=== PATIENT | female | born 1965 | race Caucasian/White ===

== ENCOUNTER → 2016-02-28 | Outpatient (CLI) | payer BC ==
[~2016-02-28] MED LIST: BUSP5TAB59 PO; FEXO1TAB49 PO; OMEP40CA41 PO
== END | disposition home or self-care (01) ==
LOC: C.PAPS 14:44
PROVIDERS: ATTEND Obstetrics & Gynecology
DX: Z01.419 Encounter for gynecological examination (general) (routine) without abnormal findings (principal); N92.0 Excessive and frequent menstruation with regular cycle

== ENCOUNTER → 2016-02-28 | Outpatient (CLI) | payer BC | END | disposition home or self-care (01) | LOC: C.PATHSPEC 13:43 | PROVIDERS: ATTEND Obstetrics & Gynecology | DX: N92.0 Excessive and frequent menstruation with regular cycle (principal) ==

== ENCOUNTER → 2016-02-28 | Outpatient (CLI) | payer BC ==
[2016-02-28 15:02] LABS: URINE APPEARANCE CLEAR (CLEAR); URINE BILIRUBIN NEG (NEG); URINE COLOR ORANGE; URINE EPITHELIAL CELL AUTO >30 /lpf (0-5); URINE NITRITE NEG (NEG); UROBILINOGEN NEG (NEG)
[2016-02-28 15:09] LABS: MANUAL MICROSCOPIC REQUIRED? NO; REVIEW REQ? NO
== END | disposition home or self-care (01) ==
LOC: C.LABSPEC 13:52
PROVIDERS: ATTEND Obstetrics & Gynecology
DX: N30.00 Acute cystitis without hematuria (principal)

== ENCOUNTER → 2016-04-17 | Outpatient (CLI) | payer BC ==
[2016-04-17 16:42] LABS: BASO % 0.2 %; BASO ABS # 0.02 K/uL (0-0.2); COMPLETE YES; EOS % 2.7 %; HEMATOCRIT 37.9 % (37-47); IG% 0.2 %; LYMPH % 29.9 %; LYMPH ABS # 2.51 K/uL (1.2-3.4); MEAN CELL VOLUME 82.4 fL (80-100); MEAN CORPUSCULAR HEMOGLOBIN 28.7 pg (25-34); MEAN CORPUSCULAR HGB CONC 34.8 g/dl (32-36); MEAN PLATELET VOLUME 9.5 fL (7.4-10.4); MONO % 6.1 %; NEUT % 60.9 %; PLATELET COUNT 326 K/uL (130-400)
== END | disposition home or self-care (01) ==
LOC: C.LAB1850 15:41
PROVIDERS: ATTEND Obstetrics & Gynecology
DX: N92.0 Excessive and frequent menstruation with regular cycle (principal)

== ENCOUNTER → 2016-05-03 | Day surgery (SDC) | payer BC ==
[2016-04-20 15:17] VITALS: Ht 177.8 cm; Wt 108.6 kg
--- NOTE | 2016-04-28 01:22 | HISTORY & PHYSICAL EXAMINATION ---
DATE OF ADMISSION: 05/03/2016 ADMITTING DIAGNOSES: 1. Dysfunctional uterine bleeding. 2. Probable endometrial polyp. ADMISSION HISTORY: The patient is a 51-year-old 2, para 2, who is admitted for diagnostic hysteroscopy, D\T\C for dysfunctional uterine bleeding from probable endometrial polyp. The patient was seen in the office in February of this year for evaluation of dysfunctional uterine bleeding. She was complaining of bleeding every 2 weeks. She had an endometrial biopsy that was negative and a pelvic ultrasound was performed, which suggested an endometrial polyp. She underwent an office FIS, which showed multiple endometrial polyps. Treatment options were discussed and the patient has been admitted for the above listed procedure. PAST MEDICAL HISTORY: OBSTETRICAL: x2. GYNECOLOGICAL: As above. MEDICAL: Bipolar disorder, dysmetabolic syndrome, hypercholesterolemia, hyperglycemia. SURGICAL: Cholecystectomy, colonoscopy, and lipectomy. SOCIAL HISTORY: Former smoker. FAMILY HISTORY: Noncontributory. REVIEW OF SYSTEMS: As per HPI. ADMISSION PHYSICAL EXAMINATION: GENERAL: Today shows a pleasant female in no acute distress. VITAL SIGNS: Blood pressure 108/78, height of 5 feet 10 inches, and weight of 245 pounds. HEENT EXAMINATION: Unremarkable. NECK: Supple. LUNGS: Clear. HEART: With a regular rhythm and rate. ABDOMEN: Soft and nontender. PELVIC: Shows normal external genitalia. Vaginal wall pink and rugated. Cervical os multiparous and closed. Bimanual examination shows an anterior mobile uterus. The adnexa show no palpable masses. RECTAL: Confirmatory. EXTREMITIES: No deep calf tenderness. NEUROLOGIC: Grossly intact. IMPRESSION: A 51-year-old G2, P2 for diagnostic hysteroscopy, D\T\C for dysfunctional uterine bleeding from endometrial polyps. PLAN: Risks, benefits and alternatives to the surgery have been discussed. While the benefits will be removal of any endometrial pathology, the risks are bleeding, infection, inadvertent perforation of the uterus and failure to diagnose and/or treat the problem. The patient understands this. Permit has been signed and she wishes to proceed.
[~2016-05-03] VITALS: Ht 177.8 cm; Wt 108.6 kg
[~2016-05-03] MED LIST changes: +ATROPINE SULFATE 0.1 MG/ML 5ML SYR IV PRN; -BUSP5TAB59 PO; +DEXAMETHASONE SOD INJ 4 MG/ML VIAL IV PRN; +DEXAMETHASONE SOD INJ 4 MG/ML VIAL ONE; +EpHEDrine SULFATE INJ 50 MG/ML AMP IV PRN; +FENTANYL CITRATE INJ 50 MCG/1 ML 2 ML VIAL IV PRN; +FENTANYL CITRATE INJ 50 MCG/1 ML 2 ML VIAL ONE; +IBUPROFEN 200 MG TAB ONE; +IBUPROFEN 600 MG TAB PO PRN; +KETOROLAC TROMETHAMINE 30 MG/ML VIAL IV. PRN; +KETOROLAC TROMETHAMINE 30 MG/ML VIAL ONE; +LABETALOL HCL IV 5 MG/ML 20ML IV PRN; +LACTATED RINGER'S 1000ML 1,000 ML IV SCH; +LIDOCAINE HCL 2% 2 ML VIAL (20MG/ML) ONE; +METOCLOPRAMIDE HCL INJ 5 MG/ML 2 ML VIAL IV PRN; +MIDAZOLAM HCL 1 MG/ML 2ML VIAL ONE; +MoRPHine SULFATE 10 MG/ML CARP/VIAL IV PRN; -OMEP40CA41 PO; +ONDANSETRON INJ 2 MG/ML 2 ML VIAL IV PRN; +ONDANSETRON INJ 2 MG/ML 2 ML VIAL ONE; +PHENYLEPHRINE 100MCG/ML 5ML SYR IV PRN; +PROPOFOL IV EMULSION 10 MG/ML 20 ML VIAL IV ONE; +SODIUM CHLORIDE 0.9% 1000ML 1,000 ML IV SCH
--- NOTE | 2016-05-03 09:45 | History & Physical Bridge - SC ---
H&P Re-Evaluation Bridge Note: I have examined the patient, reviewed the History & Physical and in the interval since the performance of the History & Physical I have noted the following changes of clinical significance: No changes noted
--- NOTE | 2016-05-03 10:37 | [facility] Post Operative Brief Note ---
Immediate Operative Summary Operative Date May 03, 2016. Pre-Operative Diagnosis 1)Dysfuntional Uterine Bleeding, 2)Endometrial Polyp Post-Operative Diagnosis same Procedure(s) Performed 1) Dx Hysteroscopy 2) MyoSure resection of endometrial lining Surgeon Dr. Lilo Monson Volunteer Assistant Surgeon(s) 0 Estimated Blood Loss 50 Findings Multiple endometrial polyps, resection with MyoSure, post procedure hysteroscopy showed a denuded endometrium, fluid deficit 150 cc Fluids (cc crystalloids) 700 Specimens A. Endometrial Curettings Drains None Anesthesia General Complication(s) None Disposition Recovery Room / PACU
--- NOTE | 2016-05-03 10:38 | Medical Student: [facility] ---
Immediate Operative Summary Operative Date May 03, 2016. Pre-Operative Diagnosis Dysfunctional Uterine Bleeding; Endometrial Polyp Post-Operative Diagnosis same Procedure(s) Performed 1. Diagnostic Hysteroscopy 2. Mysoure Resection of Endometrium Surgeon Dr. Pola Monson Family Resource Management Professor Surgeon(s) none Estimated Blood Loss 50cc Findings Uterus sounded to 8cm Both Tubal Ostia visualized by hysteroscopy Multiple polyps in uterine cavity on hysteroscopy Post-Myosure resection, no polyps visualized 150 mL deficit Fluids (cc crystalloids) 500cc Lactated Ringers Specimens Mysoure specimen Drains none Anesthesia General with Laygneal mask airway Complication(s) None Disposition Recovery Room / PACU
--- NOTE | 2016-05-03 10:38 | Discharge Instructions-SurgCtr ---
Discharge Instructions Date of Service May 03, 2016. Visit Reason for Visit: Menorrhagia, Abnormal Pelvic U.s. Discharge Discharge Diagnosis / Problem: same Discharge Goals Goal(s): Therapeutic intervention Activity Recommendations Activity Limitations: as noted below Anesthesia . Post Anesthesia Instructions: If you have had General Anesthesia or IV Sedation: * Do not drive today. * Resume driving when surgeon permits. * Do not make important decisions or sign legal documents today. * Call surgeon for: 1. Temperature elevations greater than 101 degrees F. 2. Uncontrollable pain. 3. Excessive bleeding. 4. Persistent nausea and vomiting. 5. Medication intolerance (nausea, vomiting or rash). * For nausea and vomiting use only clear liquids such as: tea, soda, bouillon until nausea subsides, then gradually increase diet as tolerated. * If you have any concerns or questions, call your surgeon's office. If physician is unavailable and it is an emergency, call 911 or go to the nearest emergency room. . Instructions / Follow-Up Instructions / Follow-Up ACTIVITY RECOMMENDATIONS: * Avoid tampons, douching, hot tubs, pools, and intercourse until bleeding has stopped. * May shower as usual. * No strenuous activity for 24-48 hours. After 24-48 hours, you may do anything you feel like doing (driving and sports are okay). SPECIAL CARE INSTRUCTIONS: Special Diet: * Mild nausea may occur in the immediate post-operative period. * Take clear liquids such as tea, cola or bouillon until all nausea has subsided; you may then resume your normal diet. Special Care: * Light bleeding and vaginal spotting can last from a few days to 3-4 weeks. Call your doctor if bleeding becomes heavier than the heaviest part of your period. * Check your temperature twice a day for one week. If it goes above 100.4 degrees Fahrenheit (38.0 Celsius), notify your doctor. * Call your doctor's office for an appointment for 6 weeks after your surgery. FOLLOW-UP VISIT: Call your doctor's office for an appointment for 6 weeks after your surgery. Diet Recommendations Home Diet: resume previous diet Procedures Procedures Performed: 1) Dx Hysteroscopy 2) MyoSure resection of endometrial lining Pending Studies Studies pending at discharge: yes List of pending studies: Pathology rom procedure Medical Emergencies . Who to Call and When: Medical Emergencies: If at any time you feel your situation is an emergency, please call 911 immediately. . Non-Emergent Contact Non-Emergency issues call your: Mycologist Call Non-Emergent contact if: temperature is above 100.5 . . "Provider Documentation" section prepared by Pola Monson.
--- NOTE | 2016-05-03 10:43 | OPERATIVE REPORT ---
DATE OF OPERATION: 05/03/2016 PREOPERATIVE DIAGNOSES: 1. Dysfunctional uterine bleeding. 2. Probable endometrial polyp. POSTOPERATIVE DIAGNOSIS: Same. PROCEDURE PERFORMED: 1. Diagnostic hysteroscopy. 2. MyoSure resection of endometrial lining. SURGEON: Dr. Monson. ANESTHESIA: General. FINDINGS: Hysteroscopic examination of the endometrium showed multiple endometrial polyps. MyoSure resection of the endometrial lining performed. Repeat hysteroscopic examination showed a denuded endometrial lining. Fluid deficit for the procedure 150 mL. PROCEDURE IN DETAIL: The patient was taken to the operating room and under general anesthesia, was placed in dorsolithotomy position and draped and prepped in the usual fashion. Bladder was drained of any residual urine. Single tooth tenaculum was used to grasp the anterior lip of the cervix. The cervical os was dilated with Falk dilators to a Falk #23. The MyoSure hysteroscope was inserted into the endometrial cavity with description as above. The MyoSure resection scope was inserted and a curettage of the endometrial lining with the MyoSure was performed to remove the multiple polyps. Post-procedure resection showed a denuded endometrium with no active bleeding. Fluid deficit for the procedure 150 mL. The patient taken out of dorsal lithotomy and to recovery room in satisfactory condition. I attest to the content of the Intraoperative Record and any orders documented therein. Any exceptio ns are noted below.
[2016-05-03 11:14] VITALS: TEMP 36.5
[2016-05-03 11:37] VITALS: BP 132/85; PULSE 60; O2SAT 100
--- NOTE | 2016-05-03 11:47 | Anesthesia Progress Nt - [facility] ---
Anesthesia Post Op Note Date & Time May 03, 2016 at 11:46 Vital Signs Pain Intensity: 2 Vital Signs Past 12 Hours Date Time Temp Pulse Resp B/P Pulse Ox O2 Delivery O2 Flow Rate FiO2 05/03/16 11:37 60 16 132/85 100 Room Air 05/03/16 11:14 36.5 61 16 141/84 100 Room Air 05/03/16 11:10 122/70 05/03/16 11:08 64 19 96 05/03/16 11:08 63 19 05/03/16 11:06 36.4 60 16 122/75 95 Room Air 05/03/16 11:05 122/75 05/03/16 11:03 65 16 05/03/16 11:03 64 16 97 05/03/16 11:02 65 11 05/03/16 11:02 66 11 96 05/03/16 11:00 138/77 05/03/16 10:57 61 16 05/03/16 10:57 61 16 100 05/03/16 10:55 130/75 05/03/16 10:52 62 14 05/03/16 10:52 62 14 100 05/03/16 10:51 64 20 100 05/03/16 10:51 63 20 05/03/16 10:50 136/82 05/03/16 10:48 36.2 81 16 137/85 98 Mask 8 05/03/16 10:46 70 19 05/03/16 10:46 69 19 99 05/03/16 10:45 133/68 05/03/16 10:41 79 18 99 05/03/16 10:41 77 18 05/03/16 08:10 36.7 71 16 113/67 95 Room Air Notes Mental Status: alert / awake / arousable, participated in evaluation Pt Amnestic to Procedure: Yes Nausea / Vomiting: adequately controlled Pain: adequately controlled Airway Patency, RR, SpO2: stable & adequate BP & HR: stable & adequate Hydration State: stable & adequate Anesthetic Complications: no major complications apparent
== END | disposition home or self-care (01) ==
LOC: X.SURG 07:38
PROVIDERS: ATTEND Obstetrics & Gynecology
DX: N84.0 Polyp of corpus uteri (principal); N92.0 Excessive and frequent menstruation with regular cycle; E78.00 Pure hypercholesterolemia, unspecified; N30.00 Acute cystitis without hematuria; M19.90 Unspecified osteoarthritis, unspecified site; F31.9 Bipolar disorder, unspecified; N71.9 Inflammatory disease of uterus, unspecified; Z83.3 Family history of diabetes mellitus; Z87.891 Personal history of nicotine dependence; Z82.49 Family history of ischemic heart disease and other diseases of the circulatory system; Z80.9 Family history of malignant neoplasm, unspecified

== ENCOUNTER → 2016-08-22 | Outpatient (CLI) | payer BC ==
[~2016-08-22] MED LIST changes: -ATROPINE SULFATE 0.1 MG/ML 5ML SYR IV PRN; -DEXAMETHASONE SOD INJ 4 MG/ML VIAL IV PRN; -DEXAMETHASONE SOD INJ 4 MG/ML VIAL ONE; -EpHEDrine SULFATE INJ 50 MG/ML AMP IV PRN; -FENTANYL CITRATE INJ 50 MCG/1 ML 2 ML VIAL IV PRN; -FENTANYL CITRATE INJ 50 MCG/1 ML 2 ML VIAL ONE; -IBUPROFEN 200 MG TAB ONE; -IBUPROFEN 600 MG TAB PO PRN; -KETOROLAC TROMETHAMINE 30 MG/ML VIAL IV. PRN; -KETOROLAC TROMETHAMINE 30 MG/ML VIAL ONE; -LABETALOL HCL IV 5 MG/ML 20ML IV PRN; -LACTATED RINGER'S 1000ML 1,000 ML IV SCH; -LIDOCAINE HCL 2% 2 ML VIAL (20MG/ML) ONE; -METOCLOPRAMIDE HCL INJ 5 MG/ML 2 ML VIAL IV PRN; -MIDAZOLAM HCL 1 MG/ML 2ML VIAL ONE; -MoRPHine SULFATE 10 MG/ML CARP/VIAL IV PRN; -ONDANSETRON INJ 2 MG/ML 2 ML VIAL IV PRN; -ONDANSETRON INJ 2 MG/ML 2 ML VIAL ONE; -PHENYLEPHRINE 100MCG/ML 5ML SYR IV PRN; -PROPOFOL IV EMULSION 10 MG/ML 20 ML VIAL IV ONE; -SODIUM CHLORIDE 0.9% 1000ML 1,000 ML IV SCH
[2016-08-22 17:29] LABS: MEAN CELL VOLUME 84.7 fL (80-100); MEAN CORPUSCULAR HEMOGLOBIN 27.7 pg (25-34); MEAN CORPUSCULAR HGB CONC 32.7 g/dl (32-36); MEAN PLATELET VOLUME 9.9 fL (7.4-10.4); PLATELET COUNT 367 K/uL (130-400); RED BLOOD COUNT 4.37 M/uL (4.2-5.4); WHITE BLOOD COUNT 9.08 K/uL (4.8-10.8)
== END | disposition home or self-care (01) ==
LOC: C.LAB1850 16:02
PROVIDERS: ATTEND Obstetrics & Gynecology
DX: N92.0 Excessive and frequent menstruation with regular cycle (principal)

== ENCOUNTER → 2016-08-24 | Outpatient (CLI) | payer BC ==
--- NOTE | 2016-08-24 12:44 | MAMMOGRAPHY REPORT ---
BILATERAL DIGITAL SCREENING MAMMOGRAM TOMOSYNTHESIS WITH CAD: 08/24/2016 CLINICAL HISTORY: Routine screening. TECHNIQUE: Breast tomosynthesis in addition to standard 2D mammography was performed. Current study was also evaluated with a Computer Aided Detection (CAD) system. COMPARISON: Comparison is made to exams dated: 08/24/2015 mammogram, 07/27/2014 mammogram, 06/16/2013 ma mmogram, 05/23/2012 mammogram, 05/15/2011 mammogram, and 05/03/2010 mammogram - [facility]. BREAST COMPOSITION: There are scattered areas of fibroglandular density in both breasts. FINDINGS: No suspicious masses, calcifications, or areas of architectural distortion are noted in ei ther breast. There has been no significant interval change compared to prior exams. Scattered bilate ral benign-appearing calcifications are not significantly changed. Nodular focal asymmetry in the le ft upper outer quadrant is stable dating back to at least the 2009 exam. IMPRESSION: ACR BI-RADS CATEGORY 2: BENIGN There is no mammographic evidence of malignancy. A 1 year screening mammogram is recommended. The pa tient will receive written notification of the results. Approximately 10% of breast cancers are not detected with mammography. A negative mammographic report should not delay biopsy if a clinically suggestive mass is present. Candi Yanez M.D. /:08/24/2016 09:22:35 Charge Weigher: Elijah KAUR(R)(M), [facility] letter sent: Normal 1/2 BI-RADS Code: ACR BI-RADS Category 2: Benign
== END | disposition home or self-care (01) ==
LOC: C.MAMM 08:57
PROVIDERS: ATTEND Nurse Practitioner Family
DX: Z12.31 Encounter for screening mammogram for malignant neoplasm of breast (principal)

== ENCOUNTER 2017-01-24 10:07 | Emergency (ER) | payer BC ==
[~2017-01-24] VITALS: Ht 177.8 cm; Wt 113.3 kg
[2017-01-24 10:11] VITALS: TEMP 36.5; Ht 177.8 cm; Wt 113.3 kg
[2017-01-24] MEDS ORDERED: ALUMINUM/MAGNESIUM SUSP 30 ML UDC PO STA (10:36)
[2017-01-24] MEDS ORDERED: MoRPHine SULFATE 4 MG/ML 1 ML CARP\\VIAL IV STA (10:36)
[2017-01-24] MEDS ORDERED: LIDOCAINE HCL 2% VISC SOLN 20 ML UDC PO STA (10:36)
--- NOTE | 2017-01-24 11:05 | DIAGNOSTIC IMAGING REPORT ---
CHEST ONE VIEW PORTABLE CLINICAL HISTORY: Evaluate Fever/Sepsis fever. Dyspnea. COMPARISON STUDY: 10/20/2015 FINDINGS: The bones soft tissues and hemidiaphragms are normal. The cardiomediastinal silhouette is normal. The lungs are clear. The pulmonary vasculature is normal. IMPRESSION: Negative chest. The above report was generated using voice recognition software. It may contain grammatical, syntax or spelling errors. Electronically signed by: Klever Gutierrez M.D. 01/24/2017 11:04 AM Dictated Date/Time: 01/24/2017 11:03 AM
[2017-01-24 11:40] LABS: BASO % 0.2 %; BASO ABS # 0.02 K/uL (0-0.2); COMPLETE YES; EOS % 1.4 %; HEMATOCRIT 40.4 % (37-47); IG% 0.2 %; LYMPH % 27.6 %; LYMPH ABS # 2.29 K/uL (1.2-3.4); MEAN CELL VOLUME 85.1 fL (80-100); MEAN CORPUSCULAR HEMOGLOBIN 29.3 pg (25-34); MEAN CORPUSCULAR HGB CONC 34.4 g/dl (32-36); MEAN PLATELET VOLUME 9.6 fL (7.4-10.4); MONO % 6.3 %; NEUT % 64.3 %; PLATELET COUNT 342 K/uL (130-400); RED BLOOD COUNT 4.75 M/uL (4.2-5.4); WHITE BLOOD COUNT 8.29 K/uL (4.8-10.8)
[2017-01-24 11:57] LABS: BLOOD UREA NITROGEN 11 mg/dl (7-18); BUN/CREATININE RATIO 18.4 (10-20); CALCIUM 8.7 mg/dl (8.5-10.1); CARBON DIOXIDE 30 mmol/L (21-32); CHLORIDE 105 mmol/L (98-107); CREATININE 0.62 mg/dl (0.60-1.20); GLUCOSE 98 mg/dl (70-99); POTASSIUM 3.6 mmol/L (3.5-5.1); SODIUM 137 mmol/L (136-145)
[2017-01-24] MEDS ORDERED: IBUP-1459 PO (12:23)
[2017-01-24 13:17] LABS: URINE APPEARANCE CLEAR (CLEAR); URINE BILIRUBIN NEG (NEG); URINE COLOR YELLOW; URINE EPITHELIAL CELL AUTO 20-30 /lpf (0-5); URINE NITRITE NEG (NEG); URINE PH 7.5 (4.5-7.5); URINE SPECIFIC GRAVITY 1.019 (1.000-1.030); UROBILINOGEN NEG (NEG); ZZUR CULT IF INDIC CLEAN CATCH NO
[2017-01-24 13:23] LABS: MANUAL MICROSCOPIC REQUIRED? NO; REVIEW REQ? NO
[2017-01-24] MEDS ORDERED: PROCHLORPERAZINE 5 MG/ML 2 ML VIAL IV STA (14:39)
--- NOTE | 2017-01-24 14:42 | EMERGENCY ROOM VISIT NOTE ---
History Report prepared by Martinibcecilia: Sharif Irizarry Under the Supervision of: Dr. Jair King D.O. First contact with patient: 10:31 Chief Complaint: CHEST PAIN Stated Complaint: CHEST PAINS History of Present Illness The patient is a 51 year old female who presents to the Emergency Room with complaints of constant central chest pain beginning yesterday. She describes her pain as a "burning" pain. She states that her pain began yesterday after eating a hash-brown. The patient states that she felt like her food got stuck in her throat yesterday, and she had to vomit it up. Her pain began following vomiting. She has a history of similar symptoms. The patient had an EGD and colonoscopy earlier this year for similar symptoms which were both normal. She also complains of low back pain, but states that this is chronic. She called her PCP this morning regarding her chest pain and was referred to the ED. The patient has only had orange juice squeezed from an orange since her vomiting episode yesterday. She has no history of blood clots. She notes that she has been having problems with urinary incontinence for the past three months. The patient also notes that she takes two Ibuprofen every night to sleep. Source of History: patient Onset: Yesterday Position: chest (central) Quality: burning Timing: constant Associated Symptoms: + vomiting (one episode), + back pain (low, chronic) Review of Systems See HPI for pertinent positives & negatives. A total of 10 systems reviewed and were otherwise negative. Past Medical & Surgical Medical Problems: (1) Bipolar 1 disorder (2) Bronchitis (3) Bronchitis (4) Bronchitis (5) Chest wall pain (6) DUB (dysfunctional uterine bleeding) (7) Dysmetabolic syndrome X (8) Endometrial polyp (9) Pneumonia Surgical Problems: (1) Cholecystectomy Family History Patient reports no known family medical history. Social History Smoking Status: Former Smoker Alcohol Use: none Drug Use: none Marital Status: Housing Status: lives with family Occupation Status: unemployed Current/Historical Medications Scheduled PRN Ibuprofen (Motrin), 400 MG PO HS PRN for Pain Allergies Coded Allergies: Penicillins (Verified Allergy, Unknown, PT UNSURE IF ACTUALLY ALLERGIC TO IT OR NOT, 01/24/17) Physical Exam Vital Signs Date Time Temp Pulse Resp B/P (MAP) Pulse Ox O2 Delivery O2 Flow Rate FiO2 01/24/17 12:32 130/57 01/24/17 12:07 70 12 97 01/24/17 12:01 149/87 01/24/17 11:37 66 24 96 01/24/17 11:31 131/58 01/24/17 11:23 72 20 141/86 97 01/24/17 11:19 141/86 01/24/17 10:11 36.5 75 18 144/91 96 Room Air Physical Exam CONSTITUTIONAL/VITAL SIGNS: Reviewed / noted above. GENERAL: Non-toxic in appearance. INTEGUMENTARY: Warm, dry, and [place]. HEAD: Normocephalic. EYES: without scleral icterus or trauma. ENT/OROPHARYNX: clear and moist. LYMPHADENOPATHY/NECK: Is supple without lymphadenopathy or meningismus. RESPIRATORY: Lungs clear and equal. CARDIOVASCULAR: Regular rate and rhythm. GI/ABDOMEN: Soft and nontender. No organomegaly or pulsatile mass. No rebound or guarding. Normal bowel sounds. EXTREMITIES: Warm and well perfused. BACK: No CVA tenderness. NEUROLOGICAL: Intact without focal deficits. PSYCHIATRIC: normal affect. MUSCULOSKELETAL: Normally developed with good muscle tone. Medical Decision & Procedures ER Provider Diagnostic Interpretation: Radiology results as stated below per my review and radiologist interpretation: CHEST ONE VIEW PORTABLE FINDINGS: The bones soft tissues and hemidiaphragms are normal. The cardiomediastinal silhouette is normal. The lungs are clear. The pulmonary vasculature is normal. IMPRESSION: Negative chest. The above report was generated using voice recognition software. It may contain grammatical, syntax or spelling errors. Electronically signed by: Klever Gutierrez M.D. 01/24/2017 11:04 AM Laboratory Results 01/24/17 11:30 Red Blood Count 4.75, Mean Corpuscular Volume 85.1, Mean Corpuscular Hemoglobin 29.3, Mean Corpuscular Hemoglobin Concent 34.4, Mean Platelet Volume 9.6, Neutrophils (%) (Auto) 64.3, Lymphocytes (%) (Auto) 27.6, Monocytes (%) (Auto) 6.3, Eosinophils (%) (Auto) 1.4, Basophils (%) (Auto) 0.2, Neutrophils # (Auto) 5.32, Lymphocytes # (Auto) 2.29, Monocytes # (Auto) 0.52, Eosinophils # (Auto) 0.12, Basophils # (Auto) 0.02 01/24/17 11:30 Test 01/24/17 11:30 01/24/17 13:08 White Blood Count 8.29 K/uL (4.8-10.8) Red Blood Count 4.75 M/uL (4.2-5.4) Hemoglobin 13.9 g/dL (12.0-16.0) Hematocrit 40.4 % (37-47) Mean Corpuscular Volume 85.1 fL (80-100) Mean Corpuscular Hemoglobin 29.3 pg (25-34) Mean Corpuscular Hemoglobin Concent 34.4 g/dl (32-36) Platelet Count 342 K/uL (130-400) Mean Platelet Volume 9.6 fL (7.4-10.4) Neutrophils (%) (Auto) 64.3 % Lymphocytes (%) (Auto) 27.6 % Monocytes (%) (Auto) 6.3 % Eosinophils (%) (Auto) 1.4 % Basophils (%) (Auto) 0.2 % Neutrophils # (Auto) 5.32 K/uL (1.4-6.5) Lymphocytes # (Auto) 2.29 K/uL (1.2-3.4) Monocytes # (Auto) 0.52 K/uL (0.11-0.59) Eosinophils # (Auto) 0.12 K/uL (0-0.5) Basophils # (Auto) 0.02 K/uL (0-0.2) RDW Standard Deviation 42.3 fL (36.4-46.3) RDW Coefficient of Variation 13.8 % (11.5-14.5) Immature Granulocyte % (Auto) 0.2 % Immature Granulocyte # (Auto) 0.02 K/uL (0.00-0.02) Anion Gap 2.0 mmol/L (3-11) Est Creatinine Clear Calc Drug Dose 148.1 ml/min Estimated GFR () 121.9 Estimated GFR (Non- 105.1 BUN/Creatinine Ratio 18.4 (10-20) Calcium Level 8.7 mg/dl (8.5-10.1) Troponin I < 0.015 ng/ml (0-0.045) Lipase 172 U/L (73-393) Urine Color YELLOW Urine Appearance CLEAR (CLEAR) Urine pH 7.5 (4.5-7.5) Urine Specific [place] 1.019 (1.000-1.030) Urine Protein NEG (NEG) Urine Glucose (UA) NEG (NEG) Urine Ketones NEG (NEG) Urine Occult Blood 3+ (NEG) Urine Nitrite NEG (NEG) Urine Bilirubin NEG (NEG) Urine Urobilinogen NEG (NEG) Urine Leukocyte Esterase NEG (NEG) Urine WBC (Auto) 1-5 /hpf (0-5) Urine RBC (Auto) >30 /hpf (0-4) Urine Hyaline Casts (Auto) 0 /lpf (0-5) Urine Epithelial Cells (Auto) 20-30 /lpf (0-5) Urine Bacteria (Auto) NEG (NEG) Laboratory results as stated above per my review. Medications Administered Medications (Trade) Dose Ordered Sig/Zach Route Start Time Stop Time Status Last Admin Dose Admin Morphine Sulfate (MoRPHine SULFATE INJ) 4 mg NOW STAT IV 01/24/17 10:36 01/24/17 10:38 DC 01/24/17 11:25 4 MG Al Hydroxide/Mg Hydroxide (Maalox Susp) 30 ml NOW STAT PO 01/24/17 10:36 01/24/17 10:38 DC 01/24/17 11:25 30 ML Lidocaine HCl (Viscous Lidocaine 2% Soln) 10 ml NOW STAT PO 01/24/17 10:36 01/24/17 10:39 DC 01/24/17 11:26 10 ML ECG Indication: chest pain Rate (beats per minute): 67 Rhythm: normal sinus Findings: no acute ischemic change, no ectopy ED Course 1031: Previous medical records were reviewed. The patient was evaluated in room A3. A complete history and physical examination was performed. 1036: Ordered Viscous Lidocaine 2% Soln 10 mL PO, Maalox Susp 30 mL PO, Morphine Sulfate 4 mg IV. 1439: Ordered Compazine Inj 10 mg IV. 1445: On reevaluation, the patient is resting comfortably. I discussed the results and findings with the patient. She verbalized agreement of the treatment plan. The patient was discharged home. Medical Decision the differential was considered includes acute myocardial infarction, acute coronary syndrome, myocarditis, pericarditis, pericardial effusion/tamponade, esophageal perforation, thoracic aortic dissection, pulmonary embolism, pneumonia, pneumothorax, pancreatitis, shingles, acute cholecystitis, perforated abdominal viscus. This is a 51-year-old female who presents to the ED with a chief complaint of chest discomfort. The patient states that is mostly a burning discomfort in the chest. She states that she ate some food yesterday and felt like it got stuck. She states that she has had similar symptoms in the past. She has had endoscopy less than 12 months ago and nothing was found wrong. The patient was able to tolerate fluids here and states that when found appropriately. Her ED evaluation included an EKG that shows a normal sinus rhythm without ectopy or acute injury. Chest x-ray was negative for acute disease. CBC is normal. Troponin was negative, PRP is normal lipase was negative. The patient did report some urinary symptoms and therefore urinalysis was done. This was not related to her recent for coming to the ED today. The urine did not show abnormalities concerning for infection. The patient was told results the test. She was given some IV morphine for pain, IV Compazine for nausea and a GI cocktail. She was told the results of that'll to be stable for discharge and outpatient follow-up. Medication Reconcilliation Current Medication List: was personally reviewed by me Blood Pressure Screening Patient's blood pressure: Elevated blood pressure Blood pressure disposition: Elevated BP felt to be situational Impression Primary Impression: Burning chest pain Scribe Attestation The scribe's documentation has been prepared under my direction and personally reviewed by me in its entirety. I confirm that the note above accurately reflects all work, treatment, procedures, and medical decision making performed by me. Departure Information Dispostion Home / Self-Care Referrals Suly Law, C.R.N.P. (PCP) Patient Instructions My [facility] Additional Instructions Take Pepcid or Zantac for your symptoms. Follow-up with your GI specialist in PCP for reevaluation. Return for worsening or new concerns.
[2017-01-24] MEDS ORDERED: PANT40TA PO (15:20)
[2017-01-24 15:27] VITALS: BP 126/77; PULSE 69; O2SAT 95
== END 2017-01-24 15:30 | disposition home or self-care (01) ==
LOC: C.EDB 10:07 → C.EDA 15:30
DX: R07.9 Chest pain, unspecified (principal); M54.5 Low back pain; G89.29 Other chronic pain; F31.9 Bipolar disorder, unspecified; Z87.01 Personal history of pneumonia (recurrent); Z90.49 Acquired absence of other specified parts of digestive tract; Z87.891 Personal history of nicotine dependence

== ENCOUNTER → 2017-08-30 | Outpatient (CLI) | payer OTHER ==
[~2017-08-30] MED LIST changes: +ANT25 PO; -FEXO1TAB49 PO; +FLUO20CA35 PO; +IBUP-1050 PO; +ONDA4TAB10 SL
--- NOTE | 2017-09-02 07:44 | MAMMOGRAPHY REPORT ---
BILATERAL DIGITAL SCREENING MAMMOGRAM TOMOSYNTHESIS WITH CAD: 08/30/2017 CLINICAL HISTORY: Routine screening. Patient has no complaints. TECHNIQUE: The study was acquired using full field digital technology and interpreted from soft copy. Breast tomosynthesis in addition to standard 2D mammography was performed. Current study was also ev aluated with a Computer Aided Detection (CAD) system. COMPARISON: Comparison is made to exams dated: 08/24/2016 mammogram, 08/24/2015 mammogram, 07/27/2014 m ammogram, 06/16/2013 mammogram, 06/02/2012 mammogram, and 05/23/2012 mammogram - [facility]. BREAST COMPOSITION: There are scattered areas of fibroglandular density in both breasts. FINDINGS: There is an asymmetry within the left anterior breast slightly medial to the nipple on the cc view, w hich may represent normal overlapping fibroglandular tissue although spot compression tomosynthesis v iews and possible breast ultrasound are recommended for further evaluation. The remainder of both breasts are stable compared to prior exams, without suspicious masses, calcific ations, or areas of architectural distortion noted. Scattered bilateral benign-appearing calcificati ons are not significantly changed. IMPRESSION: ACR BI-RADS CATEGORY 0: INCOMPLETE EVALUATION: NEED ADDITIONAL IMAGING EVALUATION Left breast asymmetry, for which additional imaging evaluation is recommended. The patient will be c alled to schedule an appointment. Some breast cancers are not detected with mammography. A negative mammographic report should not addie y biopsy if a clinically suggestive mass is present. Candi Yanez M.D. /:08/30/2017 15:21:27 Leather Tooler: RT Sonido(Beth)(M)(BD), [facility] letter sent: Addl Imaging 0 BI-RADS Code: ACR BI-RADS Category 0: Incomplete Evaluation: Need Additional Imaging Evaluation
== END | disposition home or self-care (01) ==
LOC: C.MAMM 14:47
PROVIDERS: ATTEND Nurse Practitioner Family
DX: Z12.31 Encounter for screening mammogram for malignant neoplasm of breast (principal); R92.8 Other abnormal and inconclusive findings on diagnostic imaging of breast

== ENCOUNTER → 2017-09-12 | Outpatient (CLI) | payer OTHER ==
--- NOTE | 2017-09-12 14:56 | MAMMOGRAPHY REPORT ---
UNILATERAL LEFT DIGITAL DIAGNOSTIC MAMMOGRAM TOMOSYNTHESIS AND TARGETED LEFT ULTRASOUND: 09/12/2017 CLINICAL HISTORY: Callback from screening mammogram for left breast asymmetry. The patient was recent ly diagnosed with thyroid cancer. TECHNIQUE: The study was acquired using full field digital technology and interpreted from soft copy. Breast tomosynthesis in addition to standard 2D mammography was performed. Spot compression left CC and MLO 2D and tomosynthesis images and full field left CC 2D view obtained. COMPARISON: Comparison is made to exams dated: 08/30/2017 mammogram, 08/24/2016 mammogram, 08/24/2015 m ammogram, 07/27/2014 mammogram, 06/16/2013 mammogram, and 05/23/2012 mammogram - [facility] nter. BREAST COMPOSITION: There are scattered areas of fibroglandular density in left breast. FINDINGS: Spot compression views demonstrate an ovoid low-density asymmetry within the left 6:[address] anteriorly, best seen on the MLO tomosynthesis images. Ultrasound was performed of the left breas t in the region of the mammographic asymmetry. In the left 6:00 periareolar breast, there is an oval hypoechoic solid mass with non-circumscribed margins which measures 12 x 6 x 15 mm. This correspond s with the mammographic asymmetry and is indeterminate. Recommend ultrasound-guided core needle biop sy for further evaluation. IMPRESSION: ACR BI-RADS CATEGORY 4: SUSPICIOUS, ULTRASOUND ACR BI-RADS CATEGORY 4: SUSPICIOUS Hypoechoic 15 mm mass in the left 6:00 periareolar breast on ultrasound, which corresponds with a lisa mographic asymmetry. The mass is indeterminate and ultrasound-guided core needle biopsy is recommend ed for further evaluation. A phone call was made to the physician's office to confirm faxed results were received. The patient has been verbally notified of the results. She tentatively scheduled the biopsy before l eaving the department. Some breast cancers are not detected with mammography. A negative mammographic report should not addie y biopsy if a clinically suggestive mass is present. Candi Yanez M.D. /:09/12/2017 14:24:43 Sorter Pricer: Aida Fay RT(R)(M), [facility] letter sent: Abnormal 4/5 OVERALL STUDY BIRADS: 4 Suspicious abnormality
== END | disposition home or self-care (01) ==
LOC: C.MAMM 13:44
PROVIDERS: ATTEND Nurse Practitioner Family
DX: N64.89 Other specified disorders of breast (principal); N63.24 Unspecified lump in the left breast, lower inner quadrant

== ENCOUNTER → 2017-09-20 | Outpatient (CLI) | payer OTHER ==
--- NOTE | 2017-09-20 14:14 | Discharge Instructions ---
Discharge Instructions Procedure Procedure Date: Sep 20, 2017. Reason for visit: Left Mass. Discharge Discharge Date: Sep 20, 2017. Discharge Diagnosis: status post breast biopsy Instructions Activity Recommendations: Additional Limitations (see below) Return to School/Work: no limitations Recommended Home Diet: No Limitations Provider Instructions: ACTIVITY RECOMMENDATIONS: * No lifting, pushing, pulling or exercising the affected side for three days. RETURN TO SCHOOL/WORK: * You may return to work/school after the procedure, but do not perform any strenuous activities for 24 to 48 hours. MEDICATIONS: * Tylenol (two 325 mg) every four to six hours if needed for mild pain (if not allergic to Tylenol). DIET: * Resume previous diet. SPECIAL CARE INSTRUCTIONS: * Keep biopsy site dry for 24 hours. May shower after 24 hours, but do not soak (bathe) incision. * May remove Tegaderm (plastic patch) 24 hours after procedure * Leave the steri-strips on for one week. Allow the steri-strips to fall off by themselves. If not off after one week, you may remove them. You may place a Bandaid crosswise over the strips, if desired. * Apply ice 10 minutes on and 10 minutes off as needed. * Wear a bra at bedtime to sleep more comfortably for 2-3 days. * Your referring physician should have the results after approximately 5 to 7 business days. * Call for unusual bleeding, fever, drainage, etc or if you have any questions call during normal business hours or after hours call Dr Yanez, . FOLLOW UP VISIT: Follow-up with Referring Physician as scheduled. Allergies Coded Allergies: Penicillins (Verified Allergy, Unknown, PT UNSURE IF ACTUALLY ALLERGIC TO IT OR NOT, 08/31/17) Chin Ray Recommendations: Call your doctor if: * Temperature above 101 degrees * Pain not relieved by pain medicine ordered * There is increased drainage or redness from any incision * You have any unanswered questions or concerns. Your Doctors Instructions noted above were prepared by provider Candi Yanez. Patient Signature Section: Patient Instructions Signature Page Rachele Fregoso Patient (or Guardian) Signature/Date: I have read and understand the instructions given to me by my caregivers. Caregiver/RN/Doctor Signature/Date: The above-named patient and/or guardian has received patient instructions on this date. + Original Patient Signature Page (only) stays with chart. Please make copy for patient.
--- NOTE | 2017-09-20 15:27 | MAMMOGRAPHY REPORT ---
UNILATERAL LEFT DIGITAL DIAGNOSTIC MAMMOGRAM TOMOSYNTHESIS: 09/20/2017 CLINICAL HISTORY: Status post left breast biopsy. TECHNIQUE: The study was acquired using full field digital technology and interpreted from soft copy. Breast tomosynthesis in addition to standard 2D mammography was performed. Postprocedural left CC a nd ML tomosynthesis images were obtained. COMPARISON: Comparison is made to exams dated: 09/12/2017 mammogram, 08/30/2017 mammogram, 08/24/2016 ma mmogram, 08/24/2015 mammogram, and 07/27/2014 mammogram - [facility]. BREAST COMPOSITION: There are scattered areas of fibroglandular density in left breast. FINDINGS: A new biopsy marker clip is seen at the site of the biopsied mass in the left 6:00 anterior breast. No significant postbiopsy hematoma is seen. IMPRESSION: POST PROCEDURE IMAGING FOR MARKER PLACEMENT New biopsy marker clip status post left breast biopsy. Pathology results are pending. Some breast cancers are not detected with mammography. A negative mammographic report should not addie y biopsy if a clinically suggestive mass is present. Candi Yanez M.D. /:09/20/2017 14:27:07 Uke Driver: RT Isaac(R)(M), [facility] BI-RADS Code: Post Procedure Imaging For Marker Placement
--- NOTE | 2017-09-20 15:27 | MAMMOGRAPHY REPORT ---
ULTRASOUND GUIDED BIOPSY LEFT BREAST: 09/20/2017 CLINICAL HISTORY: Left 6:00 breast mass. PATIENT CONSENT: The procedure, risks and benefits were discussed with the patient and informed writt en consent was obtained. A timeout was performed immediately prior to the procedure. PROCEDURE DESCRIPTION: With ultrasound guidance, aseptic technique, and lidocaine as the local anesth etic (1% lidocaine to anesthetize the skin and 1% lidocaine with epinephrine to anesthetize the deepe r tissues), the mass of concern in the left 6:00 periareolar breast was sampled 3 times with a 14-gau [employer] biopsy needle. Immediately thereafter, with ultrasound guidance, a metallic localizer cl ip was placed at the biopsy site. Direct pressure was applied to the site immediately post procedure until hemostasis was achieved. Postprocedure unilateral mammograms were performed to confirm clip p lacement. Steri-Strips were placed over the site and covered with an Opsite patch. The patient fidel ated the procedure without complication. She was given wound care instructions. The specimens were s ent to pathology for analysis. COMPARISON: Comparison is made to exams dated: 09/12/2017 ultrasound, 09/12/2017 mammogram, 08/30/2017 ma mmogram, 08/24/2015 mammogram, 07/27/2014 mammogram, and 06/16/2013 mammogram - [facility]. IMPRESSION: ULTRASOUND GUIDED BIOPSY Ultrasound-guided core needle biopsy of the left 6:00 periareolar breast mass, with clip placement. The patient will receive pathology results from her referring provider. Candi Yanez M.D. /:09/20/2017 14:15:30 Documentation Lead: RT Isaac(R)(M), [facility]
== END | disposition home or self-care (01) ==
LOC: C.MAMM 13:38
PROVIDERS: ATTEND Nurse Practitioner Family
DX: N60.92 Unspecified benign mammary dysplasia of left breast (principal)

== ENCOUNTER 2021-04-03 17:37 | Observation (INO) ==
--- NOTE | 2021-04-03 17:48 | Emergency Department Note ---
Impression & Plan Atypical chest pain, Tobacco use ED Provider Note NAME: CLEVE WHEAT AGE: 55 SEX: F : 1965 ARRIVES VIA: Walk-In INFORMANT: Patient, ED PROVIDER(S): Ralf Michaud MD Chief Complaint: Chest pain, diaphoresis HPI: Patient presents due to concern for chest pain and diaphoresis. Patient states that her chest pain was left-sided squeezing in nature with pain to her neck and jaw area. The patient states that this occurred around 448 as she dropped her drain grandchildren off and states that she did take 2 nitros that were her 's. The patient was given nitro and 324 of aspirin in route. Patient states initially her pain was 15 out of 10 and is currently 8 out of 10. No prior known history of heart or lung disease but the patient is a smoker. Patient states that her father had a stroke in his 70s. No known heart attack or stroke in parents or siblings before the age of 65. The patient denies any leg swelling or history of DVT or PE. Patient denies any upper respiratory symptoms fevers or chills. Patient denies any leg swelling or shortness of breath. Patient does not know she was also having associated anxiety. Patient was not ambulatory or exerting herself at the time that this occurred and is unable to state whether or not she had exertional symptoms. ROS: See HPI for pertinent positives and negatives. A total of 10 systems were reviewed and otherwise negative. Past medical history: See below Surgical history: See below Social history: See below Physical Exam: GENERAL: Mild distress, wearing a mask. EYE EXAM: Normal conjunctiva. PERRL, no anisocoria and EOM's grossly intact w/o pain. NECK: Supple, no nuchal rigidity, no adenopathy, non-tender. No signs of meningismus. LUNGS: Clear to auscultation. Normal chest wall mechanics. HEART: NSR, no MRG. ABDOMEN: Abdomen soft, non-tender, normo-active bowel sounds, no masses, no rebound or guarding. BACK: No CVA TTP. SKIN: No rashes and no bruising. UPPER EXTREMITIES: Upper extremities are grossly normal. LOWER EXTREMITIES: Grossly normal, no edema. Negative Homans' sign bilaterally. NEURO EXAM: A&O x3, cranial nerves II-XII grossly intact, normal speech, moves all 4 extremities on command w/o issue. Differential diagnoses: Cardiac ischemia, aortic dissection, pulmonary embolism, pneumothorax, pneumonia, pericarditis, myocarditis, esophageal rupture, GERD, cholecystitis, pancreatitis, musculoskeletal, as well as other pathologies. Course: Patient was seen and evaluated the bedside. Full history physical exam was performed. EKG interpreted by me Normal sinus rhythm, rate of 87, normal intervals, normal axis, no obvious ST changes or T WI. Imaging Studies: See Below Cardiac monitoring: An order was placed for continuous cardiac monitoring. The monitor shows a rate of 82 with sinus rhythm. MDM: Patient presents due to concern for atypical chest pain. The patient did have a left-sided squeezing chest pain pressure-like and radiating to the neck and jaw area. Patient did receive nitro and aspirin with improvement in symptoms. Blood work was obtained. The patient was given additional Nitropaste ordered small mount of morphine. Patient is a normal white count H&H and platelet count. Patient's kidney function is unremarkable. Final check with. Covid negative. X-ray with cardiomegaly. Upon reassessment the patient did have improvement in her pain. Given the patient's atypical chest pain do not believe the patient should go home. Heart score greater than 3. I did speak with the on-call hospitalist Dr. Kim and the patient was admitted to the medicine service. 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 Urinary urgency Uterine fibroid Surgical History H/O total thyroidectomy History of colonoscopy History of esophagogastroduodenoscopy (EGD) History of surgery lipectomy of thigh Hx of cholecystectomy Status post hysteroscopic polypectomy hysteroscopic polypectomy with resection for intrauterine polyp removal Family History Mother Hypertension Diabetes Cardiac disorder Father Stroke Sister Breast cancer Grandmother Cancer Grandfather Cancer Social History Smoking Status: Former smoker Tobacco Type: Cigarettes Hx Alcohol Use: No Hx Substance Use: No Preferred Language: Georgian marital status: Current Living Situation: Spouse Feels Safe at Home: Yes Allergies Allergies Allergy/AdvReac Type Severity Reaction Status Date / Time Penicillins Allergy Intermediate States rash Verified 04/03/21 17:51 Opioids - Morphine Analogues AdvReac Intermediate Nausea/Abdominal Verified 04/03/21 17:51 Cramping Home Meds Home Medications Medication Instructions Recorded Confirmed levothyroxine 175 mcg tablet 175 mcg PO DAILY 01/25/21 04/03/21 pantoprazole 40 mg tablet,delayed 40 mg PO DAILY 01/25/21 04/03/21 release famotidine 20 mg tablet 20 mg PO BID PRN 04/03/21 04/03/21 Previous Rx's Medication Instructions Recorded albuterol sulfate 90 mcg/actuation 2 inha INH Q6H PRN #1 inhaler 01/25/21 aerosol inhaler Results & Data (ED) Vital Signs Vital Signs - 24 hr 04/03/21 18:10 Temperature 36.9 C Temperature Source Oral Pulse Rate 89 Pulse Rhythm Regular Pulse Strength Normal Respiratory Rate 22 Respiratory Effort / Characteristics Non-Labored Respiratory Depth Normal Respiratory Pattern Regular Blood Pressure 132/70 Blood Pressure Mean 90 Blood Pressure Position Lying Pulse Oximetry 97 Oxygen Delivery Method Room Air Sepsis Recent Fever Within 48 Hours No Sepsis New/Unexplained Change in Mental Status No Sepsis Action Taken by Nursing No Action Required Home Medications Current Medication List: was personally reviewed by me Laboratory Data Attestation: I reviewed the patient's lab results. Result diagrams: 04/03/21 18:05 04/03/21 18:05 Lab Results 04/03/21 04/03/21 04/03/21 Range/Units 18:05 18:05 18:31 WBC 7.79 (4.8-10.8) K/uL RBC 4.36 (4.2-5.4) M/uL Hgb 12.3 (12.0-16.0) g/dL Hct 37.4 (37-47) % MCV 85.8 (80-100) fL MCH 28.2 (25-34) pg MCHC 32.9 (32-36) g/dL RDW Std Deviation 42.3 (36.4-46.3) fL RDW Coeff of Isabelle 13.6 (11.5-14.5) % Plt Count 315 (130-400) K/uL MPV 9.7 (7.4-10.4) fL Immature Gran % (Auto) 0.3 % Neut % (Auto) 52.0 % Lymph % (Auto) 32.9 % [place] % (Auto) 8.2 % Eos % (Auto) 6.0 % Baso % (Auto) 0.6 % Neut # (Auto) 4.05 (1.4-6.5) K/uL Lymph # (Auto) 2.56 (1.2-3.4) K/uL [place] # (Auto) 0.64 H (0.11-0.59) K/uL Eos # (Auto) 0.47 (0-0.5) K/uL Baso # (Auto) 0.05 (0-0.2) K/uL Immature Gran # (Auto) 0.02 (0.00-0.02) K/uL Sodium 139 (136-145) mmol/L Potassium (3.5-5.1) mmol/L Chloride 104 (98-107) mmol/L Carbon Dioxide 27 (21-32) mmol/L Anion Gap 8 (3-11) BUN 18 (6-23) mg/dl Creatinine 0.61 (0.6-1.2) mg/dl Est Cr Clr Drug Dosing 142.9 ml/min Est GFR ( Amer) 119.1 ml/min Est GFR (Non-Af Amer) 102.8 ml/min BUN/Creatinine Ratio 29.5 H (10-20) Glucose 107 H (70-99(Fasting)) mg/dl Calcium 8.9 (8.5-10.1) mg/dl Total Bilirubin 0.3 (0.2-1.0) mg/dl AST (13-39) U/L ALT 15 (7-52) U/L Alkaline Phosphatase 43 (34-104) U/L Troponin I < 0.03 (0-0.04) ng/ml Total Protein 6.7 (6.0-8.3) gm/dl Albumin 3.8 (3.4-5.0) gm/dl Globulin 2.9 (2.5-4.0) gm/dl Albumin/Globulin Ratio 1.3 (0.9-2) Lipase 48 (11-82) U/L SARS-CoV-2, RNA, NAAT NEGATIVE (NEGATIVE) Administered Medications Discontinued Medications Sodium Chloride (Nss) 500 mls @ 999 mls/hr IV .Q31M STA Stop: 04/03/21 18:29 Last Infusion: 04/03/21 19:09 Dose: 0 mls/hr Documented by: [id number] Admin: 04/03/21 18:28 Dose: 999 mls/hr Documented by: [id number] Morphine Sulfate (Morphine Sulfate 4 Mg/Ml 1 Ml Carp\Vial) 4 mg IV NOW STA Stop: 04/03/21 18:00 Last Admin: 04/03/21 18:49 Dose: Not Given Documented by: [id number] Nitroglycerin (Nitroglycerin 2% Ointment 30gm Tube) 0.5 inch EXT NOW STA Stop: 04/03/21 18:00 Last Admin: 04/03/21 18:28 Dose: 0.5 inch Documented by: [id number] Imaging Data Radiologist's Impression: Chest X-Ray 04/03/21 17:59 XR chest 1V portable HISTORY: Atypical Chest Pain COMPARISON: Chest 01/25/2021. FINDINGS: There are low lung volumes. The cardiac silhouette remains mildly enlarged. There is mild central pulmonary vascular congestion without overt edema. No new focal lung consolidations to suggest pneumonia. No pleural effusions. No pneumothorax. IMPRESSION: 1. Stable cardiomegaly. 2. Mild central pulmonary vascular congestion without overt edema. ACT 112: Negative or not required by law. Electronically signed by: Edinson Ruiz M.D. 04/03/2021 6:17 PM Discharge Plan Visit Data Chief Complaint: Chest Pain Stated Complaint: CHEST PAIN ED Provider: Ralf Michaud Discharge Problem: Atypical chest pain, Tobacco use Patient Disposition: Admitted As Inpatient Forms Stand Alone Forms: [facility] Prescriptions Prescriptions: No Action levothyroxine 175 mcg tablet 175 mcg PO DAILY RF: 0 pantoprazole 40 mg tablet,delayed release (DR/EC) 40 mg PO DAILY RF: 0 albuterol sulfate 90 mcg/actuation HFA aerosol inhaler 2 inha INH Q6H PRN (Reason: shortness of breath or wheezing) Qty: 1 RF: 0 famotidine 20 mg tablet 20 mg PO BID PRN (Reason: abdominal bloating/gas pain) RF: 0 Referrals Referrals: Suly Law CRNP [Primary Care Provider] -
[2021-04-03] MEDS ORDERED: MoRPHine SULFATE 4 MG/ML 1 ML CARP\\VIAL IV STA (17:59)
[2021-04-03] MEDS ORDERED: SODIUM CHLORIDE 0.9% 500 ML IV STA (17:59)
[2021-04-03] MEDS ORDERED: NITROGLYCERIN 2% OINTMENT 30GM TUBE EXT STA (17:59)
[2021-04-03 18:13] LABS: Basophils # (auto) 0.05 K/uL (0-0.2); Basophils % (auto) 0.6 %; Eosinophils # (auto) 0.47 K/uL (0-0.5); Hematocrit (blood only) 37.4 % (37-47); Hemoglobin 12.3 g/dL (12.0-16.0); Immature Granulocytes # (auto) 0.02 K/uL (0.00-0.02); Immature Granulocytes % (auto) 0.3 %; Lymphocytes # (auto) 2.56 K/uL (1.2-3.4); Lymphocytes % (auto) 32.9 %; Mean Corpuscular Hemoglobin 28.2 pg (25-34); Mean Corpuscular Hgb Conc 32.9 g/dL (32-36); Mean Corpuscular Volume 85.8 fL (80-100); Mean Platelet Volume 9.7 fL (7.4-10.4); Monocytes # (auto) 0.64 K/uL (0.11-0.59); Monocytes % (auto) 8.2 %; Neutrophils # (auto) 4.05 K/uL (1.4-6.5); Platelet Count 315 K/uL (130-400); RDW Coefficient of Variation 13.6 % (11.5-14.5); RDW Standard Deviation 42.3 fL (36.4-46.3); Red Blood Count 4.36 M/uL (4.2-5.4); White Blood Count 7.79 K/uL (4.8-10.8)
--- NOTE | 2021-04-03 18:18 | XRay Report ---
XR chest 1V portable HISTORY: Atypical Chest Pain COMPARISON: Chest 01/25/2021. FINDINGS: There are low lung volumes. The cardiac silhouette remains mildly enlarged. There is mild c entral pulmonary vascular congestion without overt edema. No new focal lung consolidations to suggest pneumonia. No pleural effusions. No pneumothorax. IMPRESSION: 1. Stable cardiomegaly. 2. Mild central pulmonary vascular congestion without overt edema. ACT 112: Negative or not required by law. Electronically signed by: Edinson Ruiz M.D. 04/03/2021 6:17 PM
[2021-04-03 18:39] LABS: Troponin I < 0.03 ng/ml (0-0.04)
[2021-04-03 18:52] LABS: Alanine Aminotransferase 15 U/L (7-52); Albumin Globulin Ratio 1.3 (0.9-2); Albumin Level 3.8 gm/dl (3.4-5.0); Alkaline Phosphatase 43 U/L (34-104); Anion Gap 8 (3-11); BUN Creatinine Ratio 29.5 (10-20); Bilirubin,Total 0.3 mg/dl (0.2-1.0); Blood Urea Nitrogen 18 mg/dl (6-23); Calcium 8.9 mg/dl (8.5-10.1); Carbon Dioxide 27 mmol/L (21-32); Chloride 104 mmol/L (98-107); Creatinine Clr Calc Pharmacy 142.9 ml/min; Est GFR (African American) 119.1 ml/min; Est GFR (Non-African American) 102.8 ml/min; Globulin 2.9 gm/dl (2.5-4.0); Glucose 107 mg/dl (70-99(Fasting)); Lipase 48 U/L (11-82); Sodium 139 mmol/L (136-145); Total Protein 6.7 gm/dl (6.0-8.3)
[2021-04-03 19:49] LABS: Potassium 3.5 mmol/L (3.5-5.1)
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
[2021-04-03] MEDS ORDERED: ENOXAPARIN INJ 40 MG/0.4 ML SYR SQ SCH (22:00)
[2021-04-03] MEDS ORDERED: ONDANSETRON INJ 2 MG/ML 2 ML VIAL IV PRN (22:08)
[2021-04-03] MEDS ORDERED: NITROGLYCERIN SL 0.4 MG/TAB TAB SL PRN (22:08)
[2021-04-03] MEDS ORDERED: ACETAMINOPHEN 325 MG TAB PO PRN (22:08)
[2021-04-03] MEDS ORDERED: MoRPHine SULFATE 4 MG/ML 1 ML CARP\\VIAL IV PRN (22:08)
[2021-04-03] MEDS: IBUPROFEN 600 MG TAB PO PRN (22:33)
[2021-04-04] MEDS: IBUPROFEN 600 MG TAB PO PRN (06:30)
[2021-04-04] MEDS ORDERED: LEVOTHYROXINE SODIUM 175 MCG TABLET PO SCH (06:30)
[2021-04-04 07:07] LABS: BUN Creatinine Ratio 33.3 (10-20); Calcium 8.7 mg/dl (8.5-10.1); Creatinine Clr Calc Pharmacy 166.2 ml/min; Potassium 4.1 mmol/L (3.5-5.1)
[2021-04-04] MEDS ORDERED: NYSTATIN POWDER 15GM BTL EXT PRN (07:11)
[2021-04-04 07:20] LABS: Thyroid Stimulating Hormone 0.172 uIu/ml (0.300-4.500)
[2021-04-04 07:23] LABS: Hematocrit (blood only) 38.3 % (37-47); Hemoglobin 12.3 g/dL (12.0-16.0); Mean Corpuscular Hemoglobin 28.2 pg (25-34); Mean Corpuscular Hgb Conc 32.1 g/dL (32-36); Mean Corpuscular Volume 87.8 fL (80-100); Platelet Count 284 K/uL (130-400); RDW Coefficient of Variation 13.7 % (11.5-14.5); RDW Standard Deviation 44.3 fL (36.4-46.3); Red Blood Count 4.36 M/uL (4.2-5.4); White Blood Count 7.03 K/uL (4.8-10.8)
[2021-04-04 07:24] LABS: Basophils # (auto) 0.04 K/uL (0-0.2); Basophils % (auto) 0.6 %; Eosinophils % (auto) 5.7 %; Immature Granulocytes # (auto) 0.04 K/uL (0.00-0.02); Immature Granulocytes % (auto) 0.6 %; Lymphocytes # (auto) 2.06 K/uL (1.2-3.4); Lymphocytes % (auto) 29.3 %; Monocytes # (auto) 0.57 K/uL (0.11-0.59); Monocytes % (auto) 8.1 %; Neutrophils # (auto) 3.92 K/uL (1.4-6.5); Neutrophils % (auto) 55.7 %
[2021-04-04 07:58] LABS: T4 Free Thyroxine 0.77 ng/dl (0.61-1.60)
--- NOTE | 2021-04-04 08:41 | Electrocardiogram Report ---
Test Reason : Blood Pressure : / mmHG Vent. Rate : 087 BPM Atrial Rate : 087 BPM P-R Int : 188 ms QRS Dur : 102 ms QT Int : 394 ms P-R-T Axes : 049 -10 076 degrees QTc Int : 474 ms Normal sinus rhythm Moderate voltage criteria for LVH, may be normal variant Borderline ECG When compared with ECG of 25-AUG-2020 20:21, Premature ventricular complexes are no longer Present Confirmed by Silver Rahman ([id number]) on 04/04/2021 8:41:33 AM Referred By: REFERRED SELF Confirmed By:Robb Rahman
[2021-04-04] MEDS ORDERED: PANTOprazole 40 MG TAB PO SCH (09:00)
[2021-04-04] MEDS ORDERED: METOPROLOL TARTRATE 1 MG/ML VIAL IV ONE (09:22)
[2021-04-04] MEDS ORDERED: DOBUTamine HCL 12.5 MG/ML 20 ML VIAL IV ONE (09:22)
[2021-04-04] MEDS ORDERED: ATROPINE SULFATE 0.1 MG/ML 10ML SYR IV ONE (09:22)
--- NOTE | 2021-04-04 12:29 | XCELERA ---
[id number]
--- NOTE | 2021-04-04 12:59 | Electrocardiogram Report ---
Test Reason : Blood Pressure : / mmHG Vent. Rate : 068 BPM Atrial Rate : 068 BPM P-R Int : 188 ms QRS Dur : 098 ms QT Int : 416 ms P-R-T Axes : 051 -06 067 degrees QTc Int : 442 ms Normal sinus rhythm Normal ECG When compared with ECG of 03-APR-2021 17:57, No significant change was found Confirmed by Silver Rahman ([id number]) on 04/04/2021 12:59:04 PM Referred By: REFERRED SELF Confirmed By:Robb Rahman
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
== END 2021-04-04 14:54 | disposition home or self-care (01) ==
LOC: ED 17:37 → 2N 17:37 → SUATTDRO 20:24 → 2N 21:18

== ENCOUNTER 2023-03-10 08:03 | Observation (INO) ==
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
[2023-03-10] MEDS ORDERED: ACETAMINOPHEN 1,000 MG/100 ML VIAL IV STA (08:15)
[2023-03-10] MEDS ORDERED: SODIUM CHLORIDE 0.9% 1,000 ML IV ONE ×2 (08:15→09:10)
[2023-03-10] MEDS ORDERED: dexAMETHasone**PF** 10 MG/ML VIAL IV ONE (08:15)
[2023-03-10] MEDS ORDERED: diphenhydrAMINE 50 MG/ML VIAL IV STA (08:15)
--- NOTE | 2023-03-10 08:19 | Emergency Department Note ---
Impression & Plan Influenza A, Hypoxia, Full body hives ED Provider Note Name: CLEVE WHEAT Age: 57 Sex: Female Arrives Via: Ambulance Informant: Patient ED Provider: Corona Bourne MD Chief Complaint: Shortness of breath Impression: Shortness of breath Medical Decision Makin-year-old female with a history of hypothyroidism, GERD, hives arrives for evaluation shortness of breath. Patient ill for the last 48 hours with fevers, chills and flulike illness. She is mildly hypoxic on arrival. Did eventually require some nasal cannula O2. She also did receive some IV Benadryl and Decadron for her diffuse body hives which worked quite well.. She has a long history of hives I do not feel this is consistent with anaphylaxis at this time. Patient's chest x-ray is relatively unremarkable. Her labs look pretty good. Unfortunately though her flu testing is positive. She is influenza A positive. She was given p.o. Tamiflu. Patient did have an episode of hypotension which resolved with sitting up and rechecking her blood pressure. I did feel that giving her some IV fluids was indicated (1 L normal saline bolus IV) but I do not feel she is in severe sepsis or septic shock. She does not require a 30/kg IV fluid bolus at this time as she is otherwise well-hydrated and responded to initial fluids and recheck. Due to hypoxia and requiring nasal cannula O2 I discussed with her hospitalization and she is agreeable pure hospitalist consulted. This is not consistent with PE or dissection or ACS. Triage/Nursing Notes reviewed by Me Differential:Reactive airway disease, pneumonia, pneumothorax, COPD, CHF, infections, cardiac ischemia, pulmonary embolism, musculoskeletal, gastrointestinal, as well as other pathologies. Vital Signs: reviewed and remarkable for no significant abnormalities Interventions: nss bolus, tamiflu po, decadron iv, benadryl iv Labs:ED labs Reviewed by me and remarkable for + influenza a Imaging:X ray results are stated below per my interpretation: Chest: 1 view: No infiltrate, no effusion, normal cardiac border. EKG:As per my interpretation. Indication shortness of breath. Normal sinus rhythm at 96 bpm QTc of 429. There is no ectopy nor ischemia. When compared to EKG of April 04, 2021 there is no significant change. Cardiac/Tele Monitoring: Cardiac Monitoring: An Order was placed for continuous cardiac monitoring. The monitor shows a rate of 90 with a normal sinus rhythm. Consults:Dr Carito YOO Hospitalist Plan: Disposition:Hospitalization. Condition: Good History of Present Illness: 57-year-old female arrives for evaluation of illness. Patient notes 2 days of rapidly worsening fevers, chills, body aches, congestion, cough, shortness of breath. Notes so severe symptoms she was unable to get out of bed this morning. Called 911. States she is also getting diffuse hives. She has a long history of hives and sometimes just getting overheated will cause them. Notes current hives are quite severe for her but fortunately do not involve the eyes lips or tongue. She was around her daughter who was sick last week. No syncope, no chest pain. Patient denies any urinary or bowel symptoms. Mild abdominal discomfort. Past Medical History: Hypothyroid, GERD, hives Home Medications: Pantoprazole, levothyroxine Allergies: Penicillins and opioids Vitals:Blood Pressure: 116/64, Pulse 99, RR 29, T 102F, O2 92% on RA Physical Exam: GENERAL: Patient is unwell appearing and in moderate distress. RESPIRATORY: Moderate tachypnea with junky lung sounds throughout no overt wheeze CARDIOVASCULAR: Tacky .No murmur appreciated. GASTROINTESTINAL: Abdomen soft, non-tender, no peritonitis. EXTREMITIES: Normal motion all extremities, no cyanosis, no edema. NEUROLOGIC: Alert and oriented. No focal neurologic deficits appreciated SKIN: Diffuse raised hives over much of body and face. No swelling of eyelids PSYCH: Appropriate GCS: 15 ED Course: Times/Reassessments: As patient remained in ER O2 sats did start trending down. Did have an episode of hypotension resolved with initial fluid bolus and readjusting patient Corona Bourne MD Past Med/Surg History Medical History DUB (dysfunctional uterine bleeding) GERD (gastroesophageal reflux disease) Incontinence in female Papillary carcinoma of thyroid Postoperative primary hypothyroidism Urinary urgency Uterine fibroid Surgical History H/O total thyroidectomy History of colonoscopy History of esophagogastroduodenoscopy (EGD) History of surgery Hx of cholecystectomy Status post hysteroscopic polypectomy Family History Mother Hypertension Diabetes Cardiac disorder Father Stroke Sister Breast cancer Grandmother Cancer Grandfather Cancer Social History Smoking Status: Former smoker Tobacco Type: Cigarettes Do You Dip or Chew Tobacco: No; Hx Alcohol Use: No Hx Substance Use: No Preferred Language: Romansh Communication Ability: Effective 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 Beliefs That Will Affect Care: None marital status: Current Living Situation: Alone Current Living Situation Comment: lives at home with teenage daughter Other Information That Helps Us Care for You: No Feels Safe at Home: Yes Safety Concerns: Feels Safe At This Time Assistive Devices: None Allergies Allergies Allergy/AdvReac Type Severity Reaction Status Date / Time Penicillins Allergy Intermediate States rash Verified 08/08/22 10:38 Opioids - Morphine Analogues AdvReac Intermediate Nausea/Abdominal Verified 08/08/22 10:38 Cramping Home Meds Home Medications Medication Instructions Recorded Confirmed levothyroxine 150 mcg tablet 150 mcg PO [id number] 03/10/23 03/10/23 Results & Data (ED) Vital Signs Vital Signs - 24 hr 03/10/23 08:10 03/10/23 08:10 03/10/23 09:13 Temperature 39.2 C H 37.9 C H Temperature Source Oral Oral Pulse Rate 90 92 H Pulse Rate [Right Finger] 85 Respiratory Rate 24 22 Respiratory Effort / Characteristics Non-Labored Spontaneous Non-Labored Spontaneous Respiratory Depth Normal Normal Respiratory Pattern Regular Blood Pressure 116/64 Blood Pressure [Left Radial Artery] 124/65 Blood Pressure Mean 81 Blood Pressure Mean [Left Radial Artery] 84 Pulse Oximetry 90 94 Oxygen Delivery Method Room Air Nasal Cannula Oxygen Flow Rate 2 Sepsis Recent Fever Within 48 Hours Yes Sepsis New/Unexplained Change in Mental Status N/A Sepsis Action Taken by Nursing Physician Notified Laboratory Data 03/10/23 08:24 03/10/23 08:24 Lab Results 03/10/23 03/10/23 03/10/23 Range/Units 08:12 08:24 08:43 WBC 7.99 (4.8-10.8) K/ul RBC 4.96 (4.20-5.40) M/uL Hgb 13.9 (12.0-16.0) g/dl Hct 41.5 (37.0-47.0) % MCV 83.7 (80.0-100.0) fL MCH 28.0 (25.0-34.0) pg MCHC 33.5 (32.0-36.0) g/dL RDW Std Deviation 40.5 (36.4-46.3) fL RDW Coeff of Isabelle 13.2 (11.5-14.5) % Plt Count 271 (130-400) K/uL MPV 9.9 (9.4-12.4) fL Immature Gran % (Auto) 0.4 % Neut % (Auto) 85.5 % Lymph % (Auto) 9.0 % Cook % (Auto) 4.8 % Eos % (Auto) 0.0 % Baso % (Auto) 0.3 % Neut # (Auto) 6.84 H (1.40-6.50) K/uL Lymph # (Auto) 0.72 L (1.20-3.40) K/uL Cook # (Auto) 0.38 (0.11-0.59) K/uL Eos # (Auto) 0.00 (0.00-0.50) K/uL Baso # (Auto) 0.02 (0.00-0.20) K/uL Immature Gran # (Auto) 0.03 (0.01-0.20) K/uL Sodium 137 (136-145) mmol/L Potassium 3.1 L (3.5-5.1) mmol/L Chloride 103 (98-107) mmol/L Carbon Dioxide 25 (21-32) mmol/L Anion Gap 9 (3-11) BUN 19 (6-23) mg/dl Creatinine 0.75 (0.6-1.2) mg/dl Est Cr Clr Drug Dosing 114.5 ml/min Est GFR ( Amer) 103.3 ml/min Est GFR (Non-Af Amer) 89.1 ml/min BUN/Creatinine Ratio 25.3 H (10-20) Glucose 142 H (70-99(Fasting)) mg/dl Lactate 1.0 (0.4-2.0) mmol/L Calcium 8.9 (8.6-10.3) mg/dl Magnesium 1.8 (1.7-2.4) mg/dl Total Bilirubin 0.9 (0.2-1.0) mg/dl Direct Bilirubin 0.1 (0-0.2) mg/dl AST 30 (13-39) U/L ALT 23 (7-52) U/L Alkaline Phosphatase 46 (34-104) U/L Troponin I High Sens 4.3 (0-14) pg/ml Total Protein 6.7 (6.0-8.3) gm/dl Albumin 3.9 (3.4-5.0) gm/dl Procalcitonin 0.40 (0-0.5) ng/ml TSH 0.368 (0.300-4.500) uIu/ml Urine Color Yellow Urine Appearance Slightly Cloudy (Clear) Urine pH 5.5 (4.5-7.5) Ur Specific [place] >= 1.030 (1.000-1.030) Urine Protein 2+ H (Negative) Urine Glucose (UA) Negative (Negative) Urine Ketones Negative (Negative) Urine Blood 1+ H (Negative) Urine Nitrite Negative (Negative) Urine Bilirubin 1+ H (Negative) Urine Urobilinogen Negative (Negative) Ur Leukocyte Esterase Negative (Negative) Urine RBC 0-4 (0-4) /hpf Urine WBC 5-10 H (0-5) /hpf Ur Epithelial Cells >30 H (0-5) /lpf Urine Bacteria 2+ H (Negative) Hyaline Casts >30 H (0-5) /lpf Urine Mucus Present A (None Prsent) SARS-CoV-2 (PCR) NEGATIVE (Negative) Influenza Type A (PCR) Positive A* (Neg) Influenza Type B (PCR) Negative (Neg) RSV (RT-PCR) Negative (Neg) Administered Medications Lactated Ringer's (Lr) 1,000 mls @ 80 mls/hr IV .[id number] YESICA Stop: 03/10/23 23:14 Last Admin: 03/10/23 10:54 Dose: 80 mls/hr Documented By: MISAEL Discontinued Medications Albuterol (Albut/Ipratrop 3mg/0.5mg Neb 3 Ml Vial) 3 ml NEB NOW STA; Protocol Stop: 03/10/23 10:33 Last Admin: 03/10/23 10:54 Dose: 3 ml Documented By: MISAEL Albuterol (Albut/Ipratrop 3mg/0.5mg Neb 3 Ml Vial) 3 ml NEB QIDR YESICA; Protocol Stop: 04/09/23 13:59 Last Admin: 03/10/23 14:28 Dose: Not Given Documented By: HUMA Dexamethasone Sodium Phosphate (DexamethasonePf 10 Mg/Ml Vial) 10 mg IV NOW ONE Stop: 03/10/23 08:16 Last Admin: 03/10/23 08:25 Dose: 10 mg Documented By: MISAEL Diphenhydramine HCl (Diphenhydramine 50 Mg/Ml Vial) 50 mg IV NOW STA Stop: 03/10/23 08:16 Last Admin: 03/10/23 08:25 Dose: 50 mg Documented By: MISAEL Sodium Chloride (Nss) 1,000 mls @ 999 mls/hr IV .Q1H1M ONE Stop: 03/10/23 09:15 Last Infusion: 03/10/23 09:46 Dose: Infused Documented By: Admin: 03/10/23 08:25 Dose: 999 mls/hr Documented By: MISAEL Acetaminophen (Ofirmev) 1,000 mg in 100 mls @ 400 mls/hr IV NOW STA Stop: 03/10/23 08:29 Last Infusion: 03/10/23 08:41 Dose: Infused Documented By: Admin: 03/10/23 08:25 Dose: 400 mls/hr Documented By: MISAEL Sodium Chloride (Nss) 1,000 mls @ 999 mls/hr IV .Q1H1M ONE Stop: 03/10/23 10:10 Last Infusion: 03/10/23 10:32 Dose: Infused Documented By: Admin: 03/10/23 09:14 Dose: 999 mls/hr Documented By: MISAEL Potassium Chloride (K Adam / Wtr) 10 meq in 100 mls @ 100 mls/hr IV Q1H YESICA Stop: 03/10/23 13:14 Last Infusion: 03/10/23 14:09 Dose: Infused Documented By: Admin: 03/10/23 12:42 Dose: 100 mls/hr Documented By: Infusion: 03/10/23 12:30 Dose: Infused Documented By: Admin: 03/10/23 10:54 Dose: 100 mls/hr Documented By: MISAEL Magnesium Sulfate/Dextrose (Magnesium Sulfate / D5w) 1 gm in 100 mls @ 50 mls/hr IV Q2H YESICA Stop: 03/10/23 14:14 Last Admin: 03/10/23 12:42 Dose: 50 mls/hr Documented By: Infusion: 03/10/23 12:42 Dose: Infused Documented By: Admin: 03/10/23 10:54 Dose: 50 mls/hr Documented By: MISAEL Oseltamivir Phosphate (Oseltamivir Phosphate 75 Mg Cap) 75 mg PO NOW STA; Protocol Stop: 03/10/23 09:34 Last Admin: 03/10/23 09:53 Dose: 75 mg Documented By: MISAEL Pantoprazole Sodium (Pantoprazole 40 Mg Tab) 40 mg PO NOW STA Stop: 03/10/23 10:54 Last Admin: 03/10/23 12:53 Dose: 40 mg Documented By: MISAEL Imaging Data Radiologist's Impression: Chest X-Ray 03/10/23 08:16 XR chest 1V portable CLINICAL HISTORY: cough, sob TECHNIQUE: Single frontal radiograph of the chest was obtained. Comparison: Comparison is made to chest radiograph 04/03/2021 FINDINGS: No lines and tubes are seen. The cardiomediastinal silhouette is normal. The lungs are clear. No evidence of pleural effusion or pneumothorax. IMPRESSION: No acute chest disease. ACT 112: Negative or not required by law. Electronically signed by: Arnulfo Hurley M.D. 03/10/2023 8:40 AM Discharge Plan Visit Data Chief Complaint: Illness ED Provider: Corona Bourne Discharge Problem: Influenza A, Hypoxia, Full body hives Patient Disposition: Admitted As Inpatient Discharge Instructions Interventions: ED Discharge Assessment Last Done: 03/10/23 12:50
--- NOTE | 2023-03-10 08:41 | XRay Report ---
XR chest 1V portable CLINICAL HISTORY: cough, sob TECHNIQUE: Single frontal radiograph of the chest was obtained. Comparison: Comparison is made to chest radiograph 04/03/2021 FINDINGS: No lines and tubes are seen. The cardiomediastinal silhouette is normal. The lungs are clear. No evid ence of pleural effusion or pneumothorax. IMPRESSION: No acute chest disease. ACT 112: Negative or not required by law. Electronically signed by: Arnulfo Hurley M.D. 03/10/2023 8:40 AM
[2023-03-10 08:45] LABS: Basophils # (auto) 0.02 K/uL (0.00-0.20); Basophils % (auto) 0.3 %; Hematocrit (blood only) 41.5 % (37.0-47.0); Hemoglobin 13.9 g/dl (12.0-16.0); Immature Granulocytes # (auto) 0.03 K/uL (0.01-0.20); Immature Granulocytes % (auto) 0.4 %; Lymphocytes # (auto) 0.72 K/uL (1.20-3.40); Mean Corpuscular Hgb Conc 33.5 g/dL (32.0-36.0); Mean Corpuscular Volume 83.7 fL (80.0-100.0); Mean Platelet Volume 9.9 fL (9.4-12.4); Monocytes # (auto) 0.38 K/uL (0.11-0.59); Monocytes % (auto) 4.8 %; Neutrophils # (auto) 6.84 K/uL (1.40-6.50); Neutrophils % (auto) 85.5 %; Platelet Count 271 K/uL (130-400); RDW Coefficient of Variation 13.2 % (11.5-14.5); RDW Standard Deviation 40.5 fL (36.4-46.3); Red Blood Count 4.96 M/uL (4.20-5.40); White Blood Count 7.99 K/ul (4.8-10.8)
[2023-03-10 08:59] LABS: Appearance Urine Slightly Cloudy (Clear); Bilirubin Urine 1+ (Negative); Blood Urine 1+ (Negative); Color Urine Yellow; Glucose Urine UA Negative (Negative); Ketones Urine Negative (Negative); Leukocyte Esterase Urine Negative (Negative); Nitrite Urine Negative (Negative); Protein Urine 2+ (Negative); Specific Gravity Urine >= 1.030 (1.000-1.030); Urobilinogen Urine Negative (Negative); pH Urine 5.5 (4.5-7.5)
[2023-03-10 09:04] LABS: Albumin Level 3.9 gm/dl (3.4-5.0); BUN Creatinine Ratio 25.3 (10-20); Bilirubin Direct 0.1 mg/dl (0-0.2); Bilirubin,Total 0.9 mg/dl (0.2-1.0); Calcium 8.9 mg/dl (8.6-10.3); Creatinine Clr Calc Pharmacy 114.5 ml/min; Est GFR (African American) 103.3 ml/min; Est GFR (Non-African American) 89.1 ml/min; Magnesium 1.8 mg/dl (1.7-2.4); Potassium 3.1 mmol/L (3.5-5.1); Total Protein 6.7 gm/dl (6.0-8.3)
[2023-03-10 09:10] LABS: Troponin I High Sensitivity 4.3 pg/ml (0-14)
[2023-03-10 09:19] LABS: Thyroid Stimulating Hormone 0.368 uIu/ml (0.300-4.500)
[2023-03-10 09:21] LABS: Influenza B virus by PCR Negative (Neg); RSV by PCR Negative (Neg); SARS CoV2 RNA(COVID-19) Ceph NEGATIVE (Negative)
[2023-03-10 09:30] LABS: Influenza A virus by PCR Positive (Neg)
[2023-03-10] MEDS ORDERED: OSELTAMIVIR PHOSPHATE 75 MG CAP PO STA (09:33)
[2023-03-10 09:35] LABS: Mucus Urine Present (None Prsent)
[2023-03-10 09:36] LABS: Bacteria Urine 2+ (Negative); Epithelial Cell Urine >30 /lpf (0-5); Hyaline Casts Urine >30 /lpf (0-5)
[2023-03-10 09:37] LABS: RBC Urine 0-4 /hpf (0-4)
--- NOTE | 2023-03-10 10:06 | Electrocardiogram Report ---
Test Reason : Blood Pressure : / mmHG Vent. Rate : 096 BPM Atrial Rate : 096 BPM P-R Int : 184 ms QRS Dur : 100 ms QT Int : 340 ms P-R-T Axes : 044 -01 086 degrees QTc Int : 429 ms Normal sinus rhythm Nonspecific T wave abnormality Abnormal ECG When compared with ECG of 04-APR-2021 06:35, No significant change was found Confirmed by Dennis Mcgowan ([id number]) on 03/10/2023 10:06:47 AM Referred By: REFERRED SELF Confirmed By:Dennis Mcgowan
--- NOTE | 2023-03-10 10:08 | History & Physical Report ---
Date of Service March 10, 2023 Assessment & Plan (1) Hypoxia: Plan: -Admit to med/tele on pulse oximetry -Currently hemodynamically stable and stable on RA -Presented to the ED with 24 hours of fever, chills, cough, nausea, and generalized weakness -Noted to be febrile and hypoxic with SpO2 reportedly in the 80's on RA on arrival -Found to be Influenza A positive, CXR negative for signs of focal consolidation -She has a 20-30 Pack year hx, quite approximately 15 years ago; also has expiratory wheezing throughout -Her transient hypoxia is likely due to undiagnosed COPD -Will give her a DuoNeb now, continue with QIDR dosing, incentive spirometry and flutter therapy -Continue prn O2 to keep SpO2 between 89-92% -Will hold additional steroids at this time as they have been shown to increase length of stay and complications in patient's hospitalized with influenza -SQ lovenox for DVT PPX -Clear liquid diet, advance as tolerated -AM CBC, BMP, mag, (2) Generalized weakness: Plan: -Likely due to a combination of acute influenza infection and hypokalemia -Will replete electrolytes on admission -Continue IV fluid hydration until she is tolerating a diet -Fall precuations (3) Hypokalemia: Plan: -3.1 on arrival -Likely due to poor oral intake with acute illness -Mag is 1.8 -Will give 3 bags of 10 meq IV KCL and 1gm IV mag sulfate on admission -Can start PO KCL later today if her nausea is improved -Will continue IV KCL if she is still nauseous later -Monitor on tele -Monitor am electrolytes (4) Influenza A: Plan: -Continue supportive care -Continue BID Tamiflu (5) GERD (gastroesophageal reflux disease): Plan: -Will start daily pantoprazole until her nausea is resolved (6) History of tobacco abuse: Plan: -Continue supportive measures -Quit approximately 15 yrs ago -Consider PFT's after discharge (7) Postoperative primary hypothyroidism: Plan: -Continue levothyroxine Plan The patient was discussed with Dr. Arzate at the time of the admission History of Present Illness Chief Complaint: Generalized illness Primary Care Provider: GREGORY Lopez Rachele is a 57 year female with a PMH significant for idiopathic urticaria, hypothyroidism, GERD who presented to the [facility] ED via EMS on 03/10/23 with complaints of fever, chills, nausea, cough, and generalized weakness which began on 03/09. In the ED she was reported to be hypoxic into the 80's on RA, her lowest reordered SpO2 at the time of evaluation appears to be 90%. She was also found to be febrile at 39.2C but otherwise stable. Labs were significant for for a potassium of 3.1, mag of 1.8, negative procal, UA with 2+ protein, 1+ blood, 1+ bilirubin, 5-10 WBC, > 30 epithelial cells, 2+ bacteria, and >30 hayline casts. Chest xray was read as "No acute chest disease.". She was also found to be influenza A positive. She was placed on 2L and remained stable. Prior to a dmission she was given a dose of 50 mg IV benadryl and 10 mg IV dexamethasone for exacerbation of her chronic urticaria. She was also given 1gm IV tylenol, 75 mg Tamiflu, and ordered 2L NSS. At the time of the exam the patient was lying in bed in no acute distress, she is currently stable on RA. She states that she had been in her normal state of health until yesterday morning when she started to developed generalized weakness, fever, chills, and nausea. Since yesterday she has had poor oral intake, a mildly productive cough with yellow sputum, generalized weakness, and exacerbation of her known idiopathic urticaria. She denies feeling SOB or feeling increased WOB at this time. She denies throat/mouth swelling, difficulty swallowing her saliva, or facial swelling. After the benadryl and dexamethasone in the ED her itching is significantly improved. She denies chest pain, hemoptysis, abd pain, vomiting, dysuria, hematuria, diarrhea, LE swelling, and recent trauma. She was a 1-1.5 PPD smoker for approximately 20 years before she quite approximately 15 years ago. She has never received formal PFT's or a diagnosis of COPD. She intended to get the influenza vaccine this year but had n ot had time to schedule an appointment. She is a full code. Please refer to Dr. Arzate's attestation for any changes to the treatment plan Allergies Allergy/AdvReac Type Severity Reaction Status Date / Time Penicillins Allergy Intermediate States rash Verified 08/08/22 10:38 Opioids - Morphine Analogues AdvReac Intermediate Nausea/Abdominal Verified 08/08/22 10:38 Cramping Home Medications Medication Instructions Recorded Confirmed Type levothyroxine 150 mcg tablet 150 mcg PO [id number] 03/10/23 03/10/23 History Past Med/Surg History Medical History DUB (dysfunctional uterine bleeding) GERD (gastroesophageal reflux disease) Incontinence in female Papillary carcinoma of thyroid Postoperative primary hypothyroidism Urinary urgency Uterine fibroid Surgical History H/O total thyroidectomy History of colonoscopy History of esophagogastroduodenoscopy (EGD) History of surgery Hx of cholecystectomy Status post hysteroscopic polypectomy Family History Mother Hypertension Diabetes Cardiac disorder Father Stroke Sister Breast cancer Grandmother Cancer Grandfather Cancer Social History Smoking Status: Former smoker Tobacco Type: Cigarettes Do You Dip or Chew Tobacco: No; Hx Alcohol Use: No Hx Substance Use: No Preferred Language: British Beliefs That Will Affect Care: None marital status: Current Living Situation: Family Current Living Situation Comment: lives at home with teenage daughter Feels Safe at Home: Yes Assistive Devices: None Physical Exam Physical Exam: Physical Exam: General: In no acute distress, stated age, ill appearing but non-toxic HEENT: Normocephalic, atraumatic, no scleral icterus, pupils around round, symmetrical, and reactive to light, dry mucus membranes, trachea midline, no thyromegaly Chest/Pulm: No respiratory distress or stridor, symmetrical chest expansion, expiratory wheezing noted throughout Cardiac: RRR, no murmurs noted Abdomen: Negative for ascites and bruising, normoactive bowel sounds, soft, non-tender to palpation throughout Musculoskeletal: Symmetrical and without signs of acute trauma, upper and lower extremities with full ROM, no atrophy, spasticity, or flaccidity Extremities: Radial, dorsalis pedis, and posterior tibial pulses are intact and symmetrical, no edema noted in the BL LE's Skin: Patient with wheals and diffuse urticarial rash on the BL upper/lowe extremities, chest, and back Neuro: Alert and oriented to person, place, month, year, and president, no focal defects, no tremors noted Psych: No acute distress, calm and cooperative during the exam Results & Data Results & Data Vital Signs (Past 12 Hours) Vital Signs Temp Pulse Pulse Resp BP BP Pulse Ox 03/10/23 09:13 37.9 C H 85 22 124/65 94 03/10/23 08:10 39.2 C H 92 H 24 116/64 90 03/10/23 08:10 90 O2 Del Method O2 Flow Rate 03/10/23 09:13 Nasal Cannula 2 03/10/23 08:10 Room Air 03/10/23 08:10 Laboratory Results Abnormal lab results 03/10/23 03/10/23 03/10/23 Range/Units 08:12 08:24 08:43 Neut # (Auto) 6.84 H (1.40-6.50) K/uL Lymph # (Auto) 0.72 L (1.20-3.40) K/uL Potassium 3.1 L (3.5-5.1) mmol/L BUN/Creatinine Ratio 25.3 H (10-20) Glucose 142 H (70-99(Fasting)) mg/dl Urine Protein 2+ H (Negative) Urine Blood 1+ H (Negative) Urine Bilirubin 1+ H (Negative) Urine WBC 5-10 H (0-5) /hpf Ur Epithelial Cells >30 H (0-5) /lpf Urine Bacteria 2+ H (Negative) Hyaline Casts >30 H (0-5) /lpf Urine Mucus Present A (None Prsent) Influenza Type A (PCR) Positive A* (Neg) Diagnostic Findings Chest X-Ray 03/10/23 08:16 XR chest 1V portable CLINICAL HISTORY: cough, sob TECHNIQUE: Single frontal radiograph of the chest was obtained. Comparison: Comparison is made to chest radiograph 04/03/2021 FINDINGS: No lines and tubes are seen. The cardiomediastinal silhouette is normal. The lungs are clear. No evidence of pleural effusion or pneumothorax. IMPRESSION: No acute chest disease. ACT 112: Negative or not required by law. Electronically signed by: Arnulfo Hurley M.D. 03/10/2023 8:40 AM ECG Additional Comments: Normal sinus rhythm Nonspecific T wave abnormality Abnormal ECG When compared with ECG of 04-APR-2021 06:35, No significant change was found Confirmed by Dennis Mcgowan ([id number]) on 03/10/2023 10:06:47 AM Code Status & VTE Plan Code Status Full code VTE Prophylaxis Plan VTE Prophylaxis will be ordered: Yes Supervising Physician Co-Signing Physician Notes I personally saw and examined the patient. I verified all riojas points and agree with Jair Simon PA-C with the following exceptions and/or additions: 57-year-old female presents to the ER with shortness of breath. Day 2 of symptoms. 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 She did not been vaccinated this year for influenza. O/E Alert and orientated x 3, heart sounds 1+2, no murmurs, bibasal reduced breath sounds, no wheezing. Abdomen soft nontender. A/P Influenza/hypoxia - Tamiflu, DuoNebs as needed, Aim O2 sats > 90% Chronic idiopathic urticaria - Add Alpa for non-sedating regular anti- histamine, PRN diphenhydramine PG Care Time/CCT Total # of Minutes Spent Total Time Spent with Patient: Total time spent is greater than 50% in coordination of care (as documented) at patient's floor/unit and/or counseling patient: [place] [address] INT INP/OBS CARE 2/55MIN Patient Type Established Medical Decision Making High Complexity Diagnoses Hypoxia R09.02 Generalized weakness R53.1 Hypokalemia E87.6 Influenza A J10.1 GERD (gastroesophageal reflux disease) K21.9 History of tobacco abuse Z87.891 Postoperative primary hypothyroidism E89.0
[2023-03-10] MEDS ORDERED: ALBUT/IPRATROP 3MG/0.5MG NEB 3 ML VIAL NEB STA (10:32)
[2023-03-10] MEDS ORDERED: LACTATED RINGER'S 1,000 ML IV SCH (10:45)
[2023-03-10] MEDS ORDERED: ONDANSETRON INJ 2 MG/ML 2 ML VIAL IV PRN (10:46)
[2023-03-10] MEDS ORDERED: PANTOprazole 40 MG TAB PO STA (10:53)
[2023-03-10] MEDS: POTASSIUM CHLORIDE / WTR 10 MEQ/100 ML PLCT IV SCH ×3 (10:54→15:23)
[2023-03-10] MEDS: MAGNESIUM SULFATE / D5W 1 GM/100 ML BAG IV SCH ×2 (10:54→12:42)
[2023-03-10] MEDS ORDERED: diphenhydrAMINE 50 MG/ML VIAL IV PRN (12:00)
[2023-03-10] MEDS ORDERED: ALBUT/IPRATROP 3MG/0.5MG NEB 3 ML VIAL NEB SCH (14:00)
[2023-03-10] MEDS ORDERED: ALBUT/IPRATROP 3MG/0.5MG NEB 3 ML VIAL NEB PRN (14:16)
[2023-03-10] MEDS: FEXOFENADINE HCL 180 MG TAB PO SCH (15:23)
[2023-03-10] MEDS ORDERED: POTASSIUM CHLORIDE CRTAB 20 MEQ TABCR PO STA (19:04)
[2023-03-10] MEDS: OSELTAMIVIR PHOSPHATE 75 MG CAP PO SCH (19:59)
[2023-03-10] MEDS ORDERED: ENOXAPARIN INJ 40 MG/0.4 ML SYR SQ SCH (21:00)
[2023-03-11] MEDS ORDERED: LOPERAMIDE HCL 2 MG CAP PO STA (00:51)
[2023-03-11 05:25] LABS: Basophils # (auto) 0.01 K/uL (0.00-0.20); Basophils % (auto) 0.2 %; Hematocrit (blood only) 34.7 % (37.0-47.0); Hemoglobin 11.7 g/dl (12.0-16.0); Immature Granulocytes # (auto) 0.04 K/uL (0.01-0.20); Immature Granulocytes % (auto) 0.6 %; Lymphocytes # (auto) 1.22 K/uL (1.20-3.40); Lymphocytes % (auto) 18.7 %; Mean Corpuscular Hemoglobin 28.7 pg (25.0-34.0); Mean Corpuscular Hgb Conc 33.7 g/dL (32.0-36.0); Monocytes % (auto) 7.7 %; Neutrophils # (auto) 4.75 K/uL (1.40-6.50); Neutrophils % (auto) 72.8 %; Platelet Count 219 K/uL (130-400); RDW Coefficient of Variation 13.2 % (11.5-14.5); Red Blood Count 4.08 M/uL (4.20-5.40); White Blood Count 6.52 K/ul (4.8-10.8)
[2023-03-11 05:38] LABS: Calcium 8.5 mg/dl (8.6-10.3); Creatinine Clr Calc Pharmacy 172.4 ml/min; Est GFR (African American) 125.4 ml/min; Est GFR (Non-African American) 108.2 ml/min; Magnesium 2.2 mg/dl (1.7-2.4); Potassium 3.8 mmol/L (3.5-5.1)
[2023-03-11] MEDS ORDERED: LEVOTHYROXINE SODIUM 150 MCG TABLET PO SCH (06:30)
[2023-03-11] MEDS: OSELTAMIVIR PHOSPHATE 75 MG CAP PO SCH (08:09)
[2023-03-11] MEDS: FEXOFENADINE HCL 180 MG TAB PO SCH (08:09)
[2023-03-11] MEDS ORDERED: PANTOprazole 40 MG TAB PO SCH (09:00)
--- NOTE | 2023-03-11 14:45 | Discharge Summary ---
Date of Service March 11, 2023 Admission HPI Per Admitting Provider Rachele is a 57 year female with a PMH significant for idiopathic urticaria, hypothyroidism, GERD who presented to the [facility] ED via EMS on 03/10/23 with complaints of fever, chills, nausea, cough, and generalized weakness which began on 03/09. In the ED she was reported to be hypoxic into the 80's on RA, her lowest reordered SpO2 at the time of evaluation appears to be 90%. She was also found to be febrile at 39.2C but otherwise stable. Labs were significant for for a potassium of 3.1, mag of 1.8, negative procal, UA with 2+ protein, 1+ blood, 1+ bilirubin, 5-10 WBC, > 30 epithelial cells, 2+ bacteria, and >30 hayline casts. Chest xray was read as "No acute chest disease.". She was also found to be influenza A positive. She was placed on 2L and remained stable. Prior to admission she was given a dose of 50 mg IV benadryl and 10 mg IV dexamethasone for exacerbation of her chronic urticaria. She was also given 1gm IV tylenol, 75 mg Tamiflu, and ordered 2L NSS. At the time of the exam the patient was lying in bed in no acute distress, she is currently stable on RA. She states that she had been in her normal state of health until yesterday morning when she started to developed generalized weakness, fever, chills, and nausea. Since yesterday she has had poor oral intake, a mildly productive cough with yellow sputum, generalized weakness, and exacerbation of her known idiopathic urticaria. She denies feeling SOB or feeling increased WOB at this time. She denies throat/mouth swelling, difficulty swallowing her saliva, or facial swelling. After the benadryl and dexamethasone in the ED her itching is significantly improved. She denies chest pain, hemoptysis, abd pain, vomiting, dysuria, hematuria, diarrhea, LE swelling, and recent trauma. She was a 1-1.5 PPD smoker for approximately 20 years before she quite approximately 15 years ago. She has never received formal PFT's or a diagnosis of COPD. She intended to get the influenza vaccine this year but had not had time to schedule an appointment. She is a full code. Principal Diagnosis Influenza A Discharge Exam Talked with her in the halls. Ambulating the halls. Able to verbalize that she is leaving. Moving all extremities. Not wearing a mask, not using accessory muscles to breath. Discharge Data Allergies Allergy/AdvReac Type Severity Reaction Status Date / Time Penicillins Allergy Intermediate States rash Verified 08/08/22 10:38 Opioids - Morphine Analogues AdvReac Intermediate Nausea/Abdominal Verified 08/08/22 10:38 Cramping Consultations 03/10/23 10:02 ED Decision to Admit Stat Hospital Course (1) Hypoxia: -Admit to med/tele on pulse oximetry Patient admitted with the influenza A. Patient also was hypoxic on room air and required 2 liters nasal cannula. -Currently hemodynamically stable and stable on RA CXR negative for signs of focal consolidation -She has a 20-30 Pack year hx, quite approximately 15 years ago; also has expiratory wheezing throughout -Her transient hypoxia is likely due to undiagnosed COPD Patient signed out AM. Patient likely required oxygen and would have benefited from nasal cannula. Sent 7 more doses of tamiflu to complete her course. Though patient will likely return given that she required supplemental oxygen at time of discharge. (2) Generalized weakness: -Likely due to a combination of acute influenza infection and hypokalemia -repleted electrolytes (3) Hypokalemia: replaced. (4) Influenza A: -Continue supportive care -Continue BID Tamiflu (5) GERD (gastroesophageal reflux disease): -Will start daily pantoprazole until her nausea is resolved (6) History of tobacco abuse: -Continue supportive measures -Quit approximately 15 yrs ago -Consider PFT's after discharge (7) Postoperative primary hypothyroidism: -Continue levothyroxine Plan The patient was discussed with Dr. Arzate at the time of the admission Total Time Total Time Spent Total Time Spent (In Minutes): 25 Discharge Plan Discharge Items Patient Disposition: Against Medical Advice Reason For Visit: HYPOXIA, INFLUENZA A, LOW POTASSIUM/MAG, GENERALIZ Condition on Discharge: Fair Activity: As commented below Activity Comment: left against medical advice Non-emergency contact: Primary Care Provider Follow-up/Referrals: Suly Law CRNP [Primary Care Provider] - 03/14/23 8:45 am Pending Studies at Discharge: No Stand-Alone Forms: My datango, Smoking Cessation Medications and DC Order Prescriptions: New oseltamivir [Tamiflu] 75 mg Capsule 75 mg PO BID Qty: 7 0RF Continued levothyroxine 150 mcg tablet 150 mcg PO [id number] Rx Instructions: Saturday - Saturday only Discharge Orders: Left Against Medical Advice (Routine); Ordered 03/11/23 Ordered By: Rowdy Mukherjee Admission Data Admit Date/Time: 03/10/23 10:17 Attending Provider: Rowdy Mukherjee Admit Provider: Alex Arzate Primary Care Provider: Suly Law Other Providers: Alex Arzate Coding Level of Care Code 08859 IN/OBS DISCH 30 MIN/LESS Diagnoses Hypoxia R09.02 Generalized weakness R53.1 Hypokalemia E87.6 Influenza A J10.1 GERD (gastroesophageal reflux disease) K21.9 History of tobacco abuse Z87.891 Postoperative primary hypothyroidism E89.0
== END 2023-03-11 15:00 | disposition left against medical advice (07) ==
LOC: ED 08:03 → 2W 10:17 → INTOOBSV 10:17 → SUATTDRO 10:17 → 2W 12:50
DX: R09.02 Hypoxemia; K21.9 Gastro-esophageal reflux disease without esophagitis; E87.6 Hypokalemia; J10.1 Influenza due to other identified influenza virus with other respiratory manifestations; L50.9 Urticaria, unspecified; Z87.891 Personal history of nicotine dependence; Z88.0 Allergy status to penicillin; R53.1 Weakness; Z88.5 Allergy status to narcotic agent; E89.0 Postprocedural hypothyroidism; Z79.890 Hormone replacement therapy